=== PATIENT | male | born 1940 | race Caucasian/White ===

== ENCOUNTER 2020-08-03 14:23 | Inpatient (IN) | payer MEDICARE, OTHER ==
[2020-08-03 15:35] LABS: Basophils % (A) 1 %; Eosinophils % (A) 0 %; HGB 12.3 gm/dL (13.0-17.5); Lymphocytes # (A) 0.6 k/uL (1.0-4.8); Lymphocytes % (A) 12 %; MCH 31.4 pg (25.0-35.0); MCV 92.4 fL (80.0-100.0); Mean Platelet Volume 8.1; Monocytes # (A) 0.4 k/uL (0-1.0); Monocytes % (A) 9 %; Neutrophils # (A) 3.8 k/uL (1.3-7.7); Neutrophils % (A) 77 %; Platelet Count 159 k/uL (150-450); RDW 13.6 % (11.5-15.5)
[2020-08-03 15:42] LABS: Potassium 4.4 mmol/L (3.5-5.1)
[2020-08-03 15:46] LABS: Magnesium 1.6 mg/dL (1.6-2.3)
--- NOTE | 2020-08-03 15:46 | XR ---
EXAMINATION TYPE: XR chest 1V portable DATE OF EXAM: 08/03/2020 COMPARISON: NONE HISTORY: Weakness TECHNIQUE: Single view FINDINGS: There is coarse pulmonary interstitial density. Heart is enlarged. Pulmonary vascularity di fficult to evaluate. There is no pleural effusion. There are chest leads. IMPRESSION: Cardiomegaly. Pulmonary interstitial fibrosis. No obvious heart failure.
[2020-08-03 15:47] LABS: Albumin 3.4 g/dL (3.5-5.0); Calcium 8.5 mg/dL (8.4-10.2); Total Bilirubin 1.2 mg/dL (0.2-1.3); Total Protein 6.6 g/dL (6.3-8.2)
[2020-08-03 15:48] LABS: INR 1.1 (<1.2); Partial Thromboplastin Time 24.6 sec (22.0-30.0); Prothrombin Time 11.9 sec (9.0-12.0)
[2020-08-03 15:54] LABS: D-Dimer 1.03 mg/L FEU (<0.60)
--- NOTE | 2020-08-03 16:36 | CT ---
EXAMINATION TYPE: CT chest angio for PE DATE OF EXAM: 08/03/2020 COMPARISON: None HISTORY: Elevated d-dimer, +covid. CT DLP: 699.2 mGycm Automated exposure control for dose reduction was used. CONTRAST: Performed with IV Contrast, patient injected with 80ml mL of Isovue 370. Images were obtained from the thoracic inlet to the diaphragm with IV contrast and 3-D post processin g. FINDINGS: There is extensive coarse reticular and nodular infiltrate throughout the lungs. There is patchy pleu ral thickening in the periphery of the right lung. There is no pleural effusion. There is multiple mediastinal and bronchial lymph nodes that measure up to 1 cm. Thoracic aorta is in tact. There is no sign of aneurysm or dissection. There is normal contrast opacification of the pulmonary arteries. There are no filling defects. There is some arthritic change in the shoulder joints. There is degenerative spurring in the thoracic spine. There is no compression fracture. Sternum is intact. IMPRESSION: No evidence of pulmonary embolism. Extensive pulmonary infiltrates could relate to combined pneumonia and pulmonary fibrosis. Mediastinal and bronchial adenopathy is likely inflammatory.
--- NOTE | 2020-08-03 17:12 | ED ---
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 Reports having onset of symptoms about 6-7 days ago. She reports dyspnea on exertion but denies any chest pain. He was a former smoker. He reports decreased appetite thus leading to decreased oral intake. Denies any loss of taste or smell. Denies possible exposure to unknown Covid patient. States he received the mother now vaccine, first dose 10 days ago. He denies any headaches, blurry vision, one-sided weakness or paresthesias, gait instability. - Related Data Allergies Allergy/AdvReac Type Severity Reaction Status Date / Time Sulfa (Sulfonamide Allergy Unknown Verified 08/03/20 14:34 Antibiotics) Childhood Review of Systems ROS Statement: Those systems with pertinent positive or pertinent negative responses have been documented in the HPI. ROS Other: All systems not noted in ROS Statement are negative. Past Medical History Past Medical History: CVA/TIA, Diabetes Mellitus, Hypertension History of Any Multi-Drug Resistant Organisms: None Reported Past Surgical History: Heart Catheterization Past Psychological History: No Psychological Hx Reported Smoking Status: Former smoker Past Alcohol Use History: None Reported Past Drug Use History: None Reported General Exam Limitations: no limitations General appearance: alert, in no apparent distress Head exam: Present: atraumatic, normocephalic, normal inspection Eye exam: Present: normal appearance, PERRL, EOMI Pupils: Present: normal accommodation ENT exam: Present: normal exam, normal oropharynx, mucous membranes moist Neck exam: Present: normal inspection, full ROM. Absent: tenderness Respiratory exam: Present: normal lung sounds bilaterally. Absent: respiratory distress Cardiovascular Exam: Present: regular rate, normal rhythm, normal heart sounds Extremities exam: Present: normal inspection, full ROM, normal capillary refill. Absent: tenderness, pedal edema, joint swelling Back exam: Present: normal inspection, full ROM. Absent: tenderness Neurological exam: Present: alert, oriented X3 Psychiatric exam: Present: normal affect, normal mood Skin exam: Present: warm, dry, intact, normal color Course Vital Signs 08/03/20 08/03/20 14:24 17:15 Temperature 99.4 F Pulse Rate 65 66 Respiratory 18 18 Rate Blood Pressure 152/70 145/87 O2 Sat by Pulse 97 98 Oximetry Medical Decision Making - Medical Decision Making 80-year-old male with history of diabetes, hypertension presents to emergency Department with a chief complaint of shortness of breath. On physical examination, patient appears to be slightly short of breath. Lungs are clear to auscultation. Patient is not hypoxic at rest. CBC reveals slight anemia at 12.3. VS within normal limits. Elevated d-dimer. CT chest angiogram showed no signs of PE, however there appears to be a bilateral pneumonia secondary to Covid. He did test positive for coronavirus here. Elevated lactic acid of 2.2 as well as elevated BUN of 29, likely secondary to dehydration. Patient will be given IV fluids. Patient will be started on 6 mg of Decadron. azithromycin IV 500 mg. I spoke with Alethea Tate NP who will admit for Dr. Montiel. Case discussed with Pulmonary consult - Lab Data Result diagrams: 08/03/20 15:18 08/03/20 15:08 Lab Results 08/03/20 08/03/20 08/03/20 Range/Units 15:08 15:08 15:08 WBC (3.8-10.6) k/uL RBC (4.30-5.90) m/uL Hgb (13.0-17.5) gm/dL Hct (39.0-53.0) % MCV (80.0-100.0) fL MCH (25.0-35.0) pg MCHC (31.0-37.0) g/dL RDW (11.5-15.5) % Plt Count (150-450) k/uL MPV Neutrophils % % Lymphocytes % % Monocytes % % Eosinophils % % Basophils % % Neutrophils # (1.3-7.7) k/uL Lymphocytes # (1.0-4.8) k/uL Monocytes # (0-1.0) k/uL Eosinophils # (0-0.7) k/uL Basophils # (0-0.2) k/uL PT 11.9 (9.0-12.0) sec INR 1.1 (<1.2) APTT 24.6 (22.0-30.0) sec D-Dimer 1.03 H (<0.60) mg/L FEU Sodium 131 L (137-145) mmol/L Potassium 4.4 (3.5-5.1) mmol/L Chloride 97 L (98-107) mmol/L Carbon Dioxide 24 (22-30) mmol/L Anion Gap 10 mmol/L BUN 29 H (9-20) mg/dL Creatinine 1.25 (0.66-1.25) mg/dL Est GFR (CKD-EPI)AfAm 63 (>60 ml/min/1.73 sqM) Est GFR (CKD-EPI)NonAf 55 (>60 ml/min/1.73 sqM) Glucose 194 H (74-99) mg/dL Lactic Ac Sepsis Rflx Plasma Lactic Acid George 2.2 H* (0.7-2.0) mmol/L Calcium 8.5 (8.4-10.2) mg/dL Magnesium 1.6 (1.6-2.3) mg/dL Total Bilirubin 1.2 (0.2-1.3) mg/dL AST 43 (17-59) U/L ALT 25 (4-49) U/L Alkaline Phosphatase 67 (38-126) U/L Lactate Dehydrogenase 719 H (313-618) U/L C-Reactive Protein 82.0 H (<10.0) mg/L Total Protein 6.6 (6.3-8.2) g/dL Albumin 3.4 L (3.5-5.0) g/dL Coronavirus (PCR) (Not Detectd) 08/03/20 08/03/20 08/03/20 Range/Units 15:18 15:18 15:47 WBC 5.0 (3.8-10.6) k/uL RBC 3.90 L (4.30-5.90) m/uL Hgb 12.3 L (13.0-17.5) gm/dL Hct 36.0 L (39.0-53.0) % MCV 92.4 (80.0-100.0) fL MCH 31.4 (25.0-35.0) pg MCHC 34.0 (31.0-37.0) g/dL RDW 13.6 (11.5-15.5) % Plt Count 159 (150-450) k/uL MPV 8.1 Neutrophils % 77 % Lymphocytes % 12 % Monocytes % 9 % Eosinophils % 0 % Basophils % 1 % Neutrophils # 3.8 (1.3-7.7) k/uL Lymphocytes # 0.6 L (1.0-4.8) k/uL Monocytes # 0.4 (0-1.0) k/uL Eosinophils # 0.0 (0-0.7) k/uL Basophils # 0.0 (0-0.2) k/uL PT (9.0-12.0) sec INR (<1.2) APTT (22.0-30.0) sec D-Dimer (<0.60) mg/L FEU Sodium (137-145) mmol/L Potassium (3.5-5.1) mmol/L Chloride (98-107) mmol/L Carbon Dioxide (22-30) mmol/L Anion Gap mmol/L BUN (9-20) mg/dL Creatinine (0.66-1.25) mg/dL Est GFR (CKD-EPI)AfAm (>60 ml/min/1.73 sqM) Est GFR (CKD-EPI)NonAf (>60 ml/min/1.73 sqM) Glucose (74-99) mg/dL Lactic Ac Sepsis Rflx Y Plasma Lactic Acid George (0.7-2.0) mmol/L Calcium (8.4-10.2) mg/dL Magnesium (1.6-2.3) mg/dL Total Bilirubin (0.2-1.3) mg/dL AST (17-59) U/L ALT (4-49) U/L Alkaline Phosphatase (38-126) U/L Lactate Dehydrogenase (313-618) U/L C-Reactive Protein (<10.0) mg/L Total Protein (6.3-8.2) g/dL Albumin (3.5-5.0) g/dL Coronavirus (PCR) Detected A (Not Detectd) Disposition Clinical Impression: Pneumonia due to COVID-19 virus, Weakness Disposition: ADMITTED IP TO THIS HOSP Condition: Fair Is patient prescribed a controlled substance at d/c from ED?: No Referrals: Ramesh Jansen MD [Primary Care Provider] - 1-2 days Time of Disposition: 18:05
[2020-08-03] MEDS ORDERED: HYDROmorphone 0.5 MG/0.5 ML SYRINGE IVP PRN (17:38)
[2020-08-03] MEDS ORDERED: ONDANSETRON 4 MG/2 ML VIAL IVP PRN (17:38)
[2020-08-03] MEDS ORDERED: NALOXONE 0.4 MG/ML 1 ML VIAL IV PRN (17:38)
[2020-08-03] MEDS ORDERED: traMADol 50 MG TAB PO PRN (17:38)
[2020-08-03] MEDS ORDERED: LORazepam 2 MG/ML INJ IV PRN (17:38)
[2020-08-03] MEDS ORDERED: HYDROcodone/APAP 5-325MG 1 EACH TAB PO PRN (17:38)
[2020-08-03] MEDS ORDERED: dexAMETHasone 2 MG TAB PO STA (17:42)
[2020-08-03] MEDS: SODIUM CHLORIDE 0.9% 1,000 ML IV SCH (17:49)
[2020-08-03] MEDS ORDERED: AZITHROMYCIN 500 MG in SODIUM CHLORIDE 0.9% 250 ML IVPB STA (17:53)
[2020-08-03] MEDS: ACETAMINOPHEN TAB 325 MG TAB PO PRN (22:49)
[2020-08-04 00:09] LABS: Ferritin 217.6 ng/mL (22.0-322.0)
--- NOTE | 2020-08-04 10:43 | P.HPIM ---
History of Present Illness 80-year-old male came in with compensative generalized body aches and mild shortness of breath when he exerts himself a lot. Patient was having some generalized weakness and body aches has been going on for about a month. Patient did receive Covid vaccine 19 days ago. Patient was a former smoker. Patient was tested for Covid 19 and came back positive. Patient EKG shows sinus rhythm on admission but denies aspiration patient appears to be in atrial flutter may be atrial fibrillation as well. Patient is on beta anirudh not on any anticoagulation patient doesn't appear to have previous history of atrial fibrillation. Patient is presently not requiring oxygen CT of the chest was done which is showing pulmonary fibrosis it appears like patient had Covid even before he received vaccine, unsure if Covid is the reason why he has pulmonary fibrosis. Patient's creatinine is 2.5 baseline is not available. Patient was also having 2 second sinus pauses Review of Systems REVIEW OF SYSTEMS: CONSTITUTIONAL: No fever. HEENT: No recent visual problems or hearing problems. Denied any sore throat. CARDIOVASCULAR: No chest pain, orthopnea, PND, no palpitations, no syncope. PULMONARY: No shortness of breath, no cough, no hemoptysis. GASTROINTESTINAL: No diarrhea, no nausea, no vomiting, no abdominal pain. NEUROLOGICAL: No headaches, no weakness, no numbness. HEMATOLOGICAL: Denies any bleeding or petechiae. GENITOURINARY: Denies any burning micturition, frequency, or urgency. MUSCULOSKELETAL/RHEUMATOLOGICAL: Denies any joint pain, swelling, or any muscle pain. ENDOCRINE: Denies any polyuria or polydipsia. The rest of the 14-point review of systems is negative. Past Medical History Past Medical History: CVA/TIA, Diabetes Mellitus, Hypertension History of Any Multi-Drug Resistant Organisms: None Reported Past Surgical History: Heart Catheterization Past Psychological History: No Psychological Hx Reported Smoking Status: Former smoker Past Alcohol Use History: None Reported Past Drug Use History: None Reported Medications and Allergies Home Medications Medication Instructions Recorded Confirmed Type Aspirin 325 mg PO DAILY 08/03/20 08/03/20 History Atorvastatin Calcium [Lipitor] 20 mg PO DAILY 08/03/20 08/03/20 History Clopidogrel Bisulfate [Plavix] 75 mg PO DAILY 08/03/20 08/03/20 History Fluticasone/Vilanterol [Breo 1 puff INHALATION RT-DAILY 08/03/20 08/03/20 History Ellipta 100-25 Mcg Inhaler] glyBURIDE [Diabeta] 5 mg PO BID 08/03/20 08/03/20 History lisinopriL [Zestril] 2.5 mg PO DAILY 08/03/20 08/03/20 History metFORMIN HCL [Glucophage] 500 mg PO BID 08/03/20 08/03/20 History Ascorbic Acid [Vitamin C] 500 mg PO BID #30 tablet 08/04/20 Rx Zinc Sulfate [Orazinc] 220 mg PO DAILY #30 capsule 08/04/20 Rx Allergies Allergy/AdvReac Type Severity Reaction Status Date / Time Sulfa (Sulfonamide Allergy Unknown Verified 08/03/20 19:36 Antibiotics) Childhood Physical Exam Vitals: Vital Signs Temp Pulse Pulse Resp BP BP Pulse Ox 08/04/20 10:00 97.5 F L 53 L 16 164/98 97 08/04/20 07:47 96 08/04/20 05:58 97.6 F 43 L 17 142/76 99 08/04/20 02:32 97.7 F 51 L 16 132/70 97 08/03/20 23:31 98.2 F 60 19 154/70 97 08/03/20 22:50 100.9 F H 64 18 144/68 97 08/03/20 20:00 59 L 18 133/75 98 08/03/20 17:15 66 18 145/87 98 08/03/20 14:24 99.4 F 65 18 152/70 97 Intake and Output 08/03/20 08/04/20 08/04/20 22:59 06:59 14:59 Output Total 400 Balance -400 Output: Urine 400 Other: Voiding Method Urinal Weight 102.058 kg PHYSICAL EXAMINATION: GENERAL: The patient is alert and oriented x3, not in any acute distress. Well developed, well nourished. HEENT: Pupils are round and equally reacting to light. EOMI. No scleral icterus. No conjunctival pallor. Normocephalic, atraumatic. No pharyngeal erythema. No thyromegaly. CARDIOVASCULAR: S1 and S2 present. No murmurs, rubs, or gallops. PULMONARY: Chest is clear to auscultation, no wheezing or crackles. ABDOMEN: Soft, nontender, nondistended, normoactive bowel sounds. No palpable organomegaly. MUSCULOSKELETAL: No joint swelling or deformity. EXTREMITIES: No cyanosis, clubbing, or pedal edema. NEUROLOGICAL: Gross neurological examination did not reveal any focal deficits. SKIN: No rashes. Results CBC & Chem 7: 08/03/20 15:18 08/03/20 15:08 Labs: Abnormal Lab Results - Last 24 Hours (Table) 08/03/20 08/03/20 08/03/20 Range/Units 15:08 15:08 15:08 RBC (4.30-5.90) m/uL Hgb (13.0-17.5) gm/dL Hct (39.0-53.0) % Lymphocytes # (1.0-4.8) k/uL D-Dimer 1.03 H (<0.60) mg/L FEU Sodium 131 L (137-145) mmol/L Chloride 97 L (98-107) mmol/L BUN 29 H (9-20) mg/dL Glucose 194 H (74-99) mg/dL Plasma Lactic Acid George 2.2 H* (0.7-2.0) mmol/L Lactate Dehydrogenase 719 H (313-618) U/L C-Reactive Protein 82.0 H (<10.0) mg/L Albumin 3.4 L (3.5-5.0) g/dL Procalcitonin (0.02-0.09) ng/mL Coronavirus (PCR) (Not Detectd) 08/03/20 08/03/20 08/03/20 Range/Units 15:08 15:18 15:18 RBC 3.90 L (4.30-5.90) m/uL Hgb 12.3 L (13.0-17.5) gm/dL Hct 36.0 L (39.0-53.0) % Lymphocytes # 0.6 L (1.0-4.8) k/uL D-Dimer (<0.60) mg/L FEU Sodium (137-145) mmol/L Chloride (98-107) mmol/L BUN (9-20) mg/dL Glucose (74-99) mg/dL Plasma Lactic Acid George (0.7-2.0) mmol/L Lactate Dehydrogenase (313-618) U/L C-Reactive Protein (<10.0) mg/L Albumin (3.5-5.0) g/dL Procalcitonin 0.15 H (0.02-0.09) ng/mL Coronavirus (PCR) Detected A (Not Detectd) Thrombosis Risk Factor Assmnt - Choose All That Apply Each Risk Factor Represents 3 Points: Age 75 years or older Thrombosis Risk Factor Assessment Total Risk Factor Score: 3 Thrombosis Risk Factor Assessment Level: Moderate Risk Assessment and Plan Plan: -Positive Covid 19 test: Unsure whether patient has active code 90 infection I believe patient may have had this infection even before he received vaccine considering the CT findings of pulmonary fibrosis. Patient is not requiring oxygen probably will not require Decadron. If cleared by pulmonology patient will be discharged today. -Hypovolemic hyponatremia patient is receiving IV fluids -renal failure possibly of acute renal failure received IV fluids overnight. I do not have baseline creatinine available. -Elevated d-dimer rule out pulmonary embolism -Pulmonary fibrosis: Etiology of this pulmonary fibrosis can be Covid 19 -Type 2 diabetes mellitus: We will hold off on metformin for today as patient received contrast with CT . Patient will continue on sliding scale and rest of the home regimen. -Hypertension - possible new-onset atrial fibrillation/flutter patient is bradycardic with sinus pauses, and cardiology will evaluate the patient echo cardiac exam will be obtained if patient need to be 90 correlation patient will be started on anticoagulation patient takes both aspirin and Plavix. If patient is on anticoagulation aspirin will be discontinued patient will be continued on Plavix and anticoagulant if needed. Patient denied any coronary artery disease with stents unsure why patient is on dual antiplatelet therapy.
--- NOTE | 2020-08-04 10:44 | P.DS ---
Providers Date of admission: 08/03/20 18:12 Attending physician: Matt Montiel Consults: 08/03/20 17:38 Consult Physician Stat Consulting Provider: Damien Myers Consult Reason/Comments: Covid pneumonia Do you want consulting provider notified?: Yes 08/04/20 03:11 Consult Physician Routine Consulting Provider: Desirae Lo Consult Reason/Comments: dysrhythmia, pauses Do you want consulting provider notified?: Yes, Notify in am Primary care physician: Ramesh Jansen [facility] Course: Refer to my history of presenting illness Patient Condition at Discharge: Fair Plan - Discharge Summary Discharge Rx Participant: No New Discharge Prescriptions: New Zinc Sulfate [Orazinc] 220 mg PO DAILY #30 capsule Ascorbic Acid [Vitamin C] 500 mg PO BID #30 tablet Continue metFORMIN HCL [Glucophage] 500 mg PO BID lisinopriL [Zestril] 2.5 mg PO DAILY glyBURIDE [Diabeta] 5 mg PO BID Clopidogrel Bisulfate [Plavix] 75 mg PO DAILY Fluticasone/Vilanterol [Breo Ellipta 100-25 Mcg Inhaler] 1 puff INHALATION RT-DAILY Atorvastatin Calcium [Lipitor] 20 mg PO DAILY Aspirin 325 mg PO DAILY Discontinued Metoprolol Succinate [Toprol XL] 25 mg PO DAILY Discharge Medication List Aspirin 325 mg PO DAILY 08/03/20 [History] Atorvastatin Calcium [Lipitor] 20 mg PO DAILY 08/03/20 [History] Clopidogrel Bisulfate [Plavix] 75 mg PO DAILY 08/03/20 [History] Fluticasone/Vilanterol [Breo Ellipta 100-25 Mcg Inhaler] 1 puff INHALATION RT- DAILY 08/03/20 [History] glyBURIDE [Diabeta] 5 mg PO BID 08/03/20 [History] lisinopriL [Zestril] 2.5 mg PO DAILY 08/03/20 [History] metFORMIN HCL [Glucophage] 500 mg PO BID 08/03/20 [History] Ascorbic Acid [Vitamin C] 500 mg PO BID #30 tablet 08/04/20 [Rx] Zinc Sulfate [Orazinc] 220 mg PO DAILY #30 capsule 08/04/20 [Rx] Follow up Appointment(s)/Referral(s): Ramesh Jansen MD [Primary Care Provider] - 3 Days Discharge Disposition: HOME SELF-CARE
--- NOTE | 2020-08-04 11:26 | P.CRDCN ---
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 Patient states he has been feeling weakness, fatigue and shortness of breath for approximately the past month. States he lives at home alone and began to feel more fatigued and weak so he came to the hospital. Patient states he did have his first dose of COVID 19 vaccine approximately 10 days ago but has been having symptoms even prior to his injection. Patient does have continued shortness of breath and productive cough but currently sats 98% on room air. Afebrile. VSS. No current complaints of chest pain, chest pressure or palpitations. Patient is atrial fibrillation on telemetry, heart rate bradycardia in the 40s-50's. Pt states he has not follow with cardiology in about 10 years or more. No known history of Atrial fibrillation. Lactic acid 2.2. Positive COVID 19 infection currently. BUN 29 CR 1.25. Elevated d-dimer 1.03, CTA of the chest negative for PE. DX of chest show pulmonary fibrosis. 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 EKG = SR on EKG, but AFIB on telemetry with bradycardia in the 40's-50's. No rate controllers. SIGNIFICANT LABORATORY VALUES: Lactic acid 2.2. Positive coated infection. B1 29 CR 1.25. Elevated d-dimer 1.03 Chest x-ray 08/03/20 = pulmonary fibrosis CT of chest 08/03/20 = negative for PE Most recent echo = none recently, will order. REVIEW OF SYSTEMS: CONSTITUTIONAL: Complains of fever and lethargy. EYES: Denies blurred vision. Denies blurred vision or vision changes. Denies eye pain. EARS, NOSE, MOUTH & THROAT: Denies headache. Denies sore throat. Denies ear pain Denies hemoptysis. CARDIOVASCULAR: Denies chest pain. Complains of shortness of breath and prod uctive cough. Denies orthopnea. Denies PND. Denies palpitations. RESPIRATORY: Complains of productive cough and shortness of breath. GASTROINTESTINAL: Denies abdominal pain or distention. Denies diarrhea. Denies constipation. Denies nausea. Denies vomiting. MUSCULOSKELETAL: Complains of myalgias. INTEGUMENTARY: Denies pruitis. Denies rash. ENDOCRINE: Complains of fatigue. Denies weight change. Denies polydipsia. Denies polyurina Denies heat/cold intolerance. GENITOURINARY: Denies burning, hematuria or urgency with micturation. HEMATOLOGIC: Denies history of anemia. Denies bleeding. NEUROLOGIC: Denies numbness. Denies tingling. Complains of weakness. PSYCHIATRIC: Denies anxiety. Denies depression. NO PHYSICAL EXAM: GENERAL: Well developed, in no acute distress. HEENT: Head is atraumatic, normocephalic. Pupils are equal, round. Extra ocular movements intact. Mucous membranes moist. Neck supple. No JVD. No carotid bruit. No thyromegaly. LUNGS: Clear to auscultation. No wheezes, rales or rhonchi. No chest wall tenderness on palpation or with deep breathing. HEART: Regular rate and rhythm, no rubs or gallops. S1 and S2 heard. No murmur. ABDOMEN: Abdominal exam, WNL. Bowel sounds x4 quads. Soft, non-tender, without masses, organomegaly, or abdominal aorta enlargement. EXTREMITIES/VASCULAR: Extremities have easily palpable radial, femoral, dorsalis pedis and posterior tibial pulses. No cyanosis, calf tenderness. No BLE edema. NEUROLOGIC: Patient is awake, alert and oriented x3. No focal neurologic abnormalities. FINAL IMPRESSION: 1. COVID 19 2. New onset Atrial fibrillation with rate control, will add Eliquis 5 mg twice dialy. 3. Sick sinus syndrome 4. Pulmonary Fibrosis 5. Hypertension PLAN: Will order echocardiogram. START Eliquis 5 mg twice daily for New onset Atrial fibrillation with good rate control. Will order TSH/Free T4. OK for discharge from a Cadiology perspective after echocardiogram. Follow-up visit in office in 4 weeks. Nurse Practitioner note has been reviewed by the Physician. Signing provider agrees with the documented findings, assessment and plan of care. Past Medical History Past Medical History: CVA/TIA, Diabetes Mellitus, Hypertension History of Any Multi-Drug Resistant Organisms: None Reported Past Surgical History: Heart Catheterization Past Psychological History: No Psychological Hx Reported Smoking Status: Former smoker Past Alcohol Use History: None Reported Past Drug Use History: None Reported Medications and Allergies Home Medications Medication Instructions Recorded Confirmed Type Aspirin 325 mg PO DAILY 08/03/20 08/03/20 History Atorvastatin Calcium [Lipitor] 20 mg PO DAILY 08/03/20 08/03/20 History Clopidogrel Bisulfate [Plavix] 75 mg PO DAILY 08/03/20 08/03/20 History Fluticasone/Vilanterol [Breo 1 puff INHALATION RT-DAILY 08/03/20 08/03/20 History Ellipta 100-25 Mcg Inhaler] glyBURIDE [Diabeta] 5 mg PO BID 08/03/20 08/03/20 History lisinopriL [Zestril] 2.5 mg PO DAILY 08/03/20 08/03/20 History metFORMIN HCL [Glucophage] 500 mg PO BID 08/03/20 08/03/20 History Ascorbic Acid [Vitamin C] 500 mg PO BID #30 tablet 08/04/20 Rx Zinc Sulfate [Orazinc] 220 mg PO DAILY #30 capsule 08/04/20 Rx Allergies Allergy/AdvReac Type Severity Reaction Status Date / Time Sulfa (Sulfonamide Allergy Unknown Verified 08/03/20 19:36 Antibiotics) Childhood Physical Exam Vitals: Vital Signs Temp Pulse Pulse Resp BP BP Pulse Ox 08/04/20 07:47 96 08/04/20 05:58 97.6 F 43 L 17 142/76 99 08/04/20 02:32 97.7 F 51 L 16 132/70 97 08/03/20 23:31 98.2 F 60 19 154/70 97 08/03/20 22:50 100.9 F H 64 18 144/68 97 08/03/20 20:00 59 L 18 133/75 98 08/03/20 17:15 66 18 145/87 98 08/03/20 14:24 99.4 F 65 18 152/70 97 Intake and Output 08/03/20 08/04/20 08/04/20 22:59 06:59 14:59 Output Total 400 Balance -400 Output: Urine 400 Other: Voiding Method Urinal Weight 102.058 kg Results 08/03/20 15:18 08/03/20 15:08 Cardiac Enzymes 08/03/20 Range/Units 15:08 AST 43 (17-59) U/L Lactate Dehydrogenase 719 H (313-618) U/L Coagulation 08/03/20 Range/Units 15:08 PT 11.9 (9.0-12.0) sec APTT 24.6 (22.0-30.0) sec CBC 08/03/20 Range/Units 15:18 WBC 5.0 (3.8-10.6) k/uL RBC 3.90 L (4.30-5.90) m/uL Hgb 12.3 L (13.0-17.5) gm/dL Hct 36.0 L (39.0-53.0) % Plt Count 159 (150-450) k/uL Comprehensive Metabolic Panel 08/03/20 Range/Units 15:08 Sodium 131 L (137-145) mmol/L Potassium 4.4 (3.5-5.1) mmol/L Chloride 97 L (98-107) mmol/L Carbon Dioxide 24 (22-30) mmol/L BUN 29 H (9-20) mg/dL Creatinine 1.25 (0.66-1.25) mg/dL Glucose 194 H (74-99) mg/dL Calcium 8.5 (8.4-10.2) mg/dL AST 43 (17-59) U/L ALT 25 (4-49) U/L Alkaline Phosphatase 67 (38-126) U/L Total Protein 6.6 (6.3-8.2) g/dL Albumin 3.4 L (3.5-5.0) g/dL Current Medications Generic Name Dose Route Start Last Admin Trade Name Freq PRN Reason Stop Dose Admin Acetaminophen 650 mg 08/03/20 17:38 08/03/20 22:49 Acetaminophen Tab 325 Mg Tab PO 650 mg Q6HR PRN Administration Mild Pain or Fever > 100.5 Hydrocodone Bitart/Acetaminophen 1 each 08/03/20 17:38 Hydrocodone/Apap 5-325mg 1 Each Tab PO Q4HR PRN Moderate Pain Ascorbic Acid 1,000 mg 08/04/20 10:15 Ascorbic Acid 500 Mg Tab PO DAILY [facility] Atorvastatin Calcium 20 mg 08/05/20 09:00 Atorvastatin 20 Mg Tab PO DAILY [facility] Budesonide/Formoterol Fumarate 2 puff 08/05/20 08:00 Symbicort 80-4.5 Mcg Inhaler INHALATION RT-BID [facility] Cholecalciferol 25 mcg 08/04/20 10:15 Cholecalciferol 25 Mcg (1000 Iu) Tablet PO DAILY [facility] Clopidogrel Bisulfate 75 mg 08/05/20 09:00 Clopidogrel 75 Mg Tab PO DAILY [facility] Glipizide 10 mg 08/04/20 21:00 Glipizide 10 Mg Tab PO BID [facility] Hydromorphone HCl 0.5 mg 08/03/20 17:38 Hydromorphone 0.5 Mg/0.5 Ml Syringe IVP Q3HR PRN Moderate Pain Sodium Chloride 1,000 mls @ 75 mls/hr 08/03/20 17:45 08/03/20 17:49 Saline 0.9% IV Not Given .[id number] [facility] Lisinopril 2.5 mg 08/05/20 09:00 Lisinopril 2.5 Mg Tab PO DAILY [facility] Lorazepam 0.5 mg 08/03/20 17:38 Lorazepam 2 Mg/Ml Inj IV Q6HR PRN Anxiety Naloxone HCl 0.2 mg 08/03/20 17:38 Naloxone 0.4 Mg/Ml 1 Ml Vial IV Q2M PRN Opioid Reversal Ondansetron HCl 4 mg 08/03/20 17:38 Ondansetron 4 Mg/2 Ml Vial IVP Q8HR PRN Nausea And Vomiting Tramadol HCl 50 mg 08/03/20 17:38 Tramadol 50 Mg Tab PO Q6H PRN Moderate Pain Zinc Sulfate 220 mg 08/04/20 10:15 Zinc Sulfate 220 Mg Cap PO DAILY [facility] Intake and Output 08/03/20 08/04/20 08/04/20 22:59 06:59 14:59 Output Total 400 Balance -400 Output: Urine 400 Other: Voiding Method Urinal Weight 102.058 kg 08/03/20 15:18 08/03/20 15:08 EKG Interpretations (text) New onset Atrial fibrillation with rate control
[2020-08-04] MEDS: ZINC SULFATE 220 MG CAP PO SCH (11:56)
[2020-08-04] MEDS: CHOLECALCIFEROL 25 MCG (1000 IU) TABLET PO SCH (11:56)
[2020-08-04] MEDS: ASCORBIC ACID 500 MG TAB PO SCH (11:56)
[2020-08-04] MEDS: SODIUM CHLORIDE 0.9% 1,000 ML IV SCH ×2 (11:57→17:19)
[2020-08-04 13:16] LABS: T4, Free (Free Thyroxine) 1.87 ng/dL (0.78-2.19)
--- NOTE | 2020-08-04 15:19 | P.CNPUL ---
History of Present Illness Consult date: 08/04/20 Requesting physician: Leslie Blackmon Reason for consult: dyspnea, abnormal CXR/CT Chief complaint: Fall, weakness History of present illness: This is a very pleasant 80-year-old gentleman who follows with Dr. Jansen as his primary care provider. He has a history of CVA with continued right-sided weakness, diabetes mellitus, hypertension, former smoker. One week ago he had fallen at home and could hardly get himself up. He has had progressive weakness since that time. He presented here to the emergency room yesterday for the same. He has been having poor appetite. Poor oral intake. He take edema during a vaccine approximately 10 days ago. No known exposure to CoVID however the patient did test positive yesterday. Chest x-ray shows evidence of cardiomegaly. Pulmonary interstitial fibrosis. No overt heart failure. CT angiogram ruled out pulmonary embolism. There is extensive pulmonary infiltrates related to combined pneumonia and pulmonary fibrosis. Mediastinal and bronchial adenopathy most likely inflammatory. White count 5.0. Hemoglobin 12.3. Lymphocytes 0.6. D-dimer 1.03. Sodium 131. Potassium 4.4. Creatinine 1.25. Initial lactic 2.2. Currently 1.7. LDH 719. C-reactive protein 82. Pro-calcitonin 0.15. TSH 0.26. Free T4 1 0.87. ekg monitor reading atrial fibrillation with bradycardia. He is seen today in consultation on the regular medical floor. His currently resting comfortably in bed. Awake and alert in no acute distress. Maintaining O2 saturations in the 90s on room air. No shortness of breath, cough or congestion. No fever, chills or night sweats. Review of Systems REVIEW OF SYSTEMS: CONSTITUTIONAL: Positive for weakness, recent falls. Denies any recent significant weight loss or weight gain. EYES: Denies change in vision. EARS, NOSE, MOUTH, THROAT: Denies headaches, denies sore throat. CARDIOVASCULAR: Denies chest pain, palpitations or syncopal episodes. RESPIRATORY: Denies shortness of breath, cough, congestion or hemoptysis. GASTROINTESTINAL: Poor appetite, denies abdominal pain GENITOURINARY: Denies hematuria, denies infections. MUSKULOSKELETAL: Continue with right-sided weakness from previous CVA INTEGUMENTARY: Denies rash, denies eczema. NEUROLOGICAL: Denies recent memory loss, no recent seizure activity. PSYCHIATRIC: Denies anxiety, denies depression. HEMATOLOGIC/LYMPHATIC: Denies anemia, denies enlarged lymph nodes. Past Medical History Past Medical History: CVA/TIA, Diabetes Mellitus, Hypertension History of Any Multi-Drug Resistant Organisms: None Reported Past Surgical History: Heart Catheterization Past Psychological History: No Psychological Hx Reported Smoking Status: Former smoker Past Alcohol Use History: None Reported Past Drug Use History: None Reported Medications and Allergies Home Medications Medication Instructions Recorded Confirmed Type Aspirin 325 mg PO DAILY 08/03/20 08/03/20 History Atorvastatin Calcium [Lipitor] 20 mg PO DAILY 08/03/20 08/03/20 History Clopidogrel Bisulfate [Plavix] 75 mg PO DAILY 08/03/20 08/03/20 History Fluticasone/Vilanterol [Breo 1 puff INHALATION RT-DAILY 08/03/20 08/03/20 History Ellipta 100-25 Mcg Inhaler] glyBURIDE [Diabeta] 5 mg PO BID 08/03/20 08/03/20 History lisinopriL [Zestril] 2.5 mg PO DAILY 08/03/20 08/03/20 History metFORMIN HCL [Glucophage] 500 mg PO BID 08/03/20 08/03/20 History Ascorbic Acid [Vitamin C] 500 mg PO BID #30 tablet 08/04/20 Rx Zinc Sulfate [Orazinc] 220 mg PO DAILY #30 capsule 08/04/20 Rx Allergies Allergy/AdvReac Type Severity Reaction Status Date / Time Sulfa (Sulfonamide Allergy Unknown Verified 08/03/20 19:36 Antibiotics) Childhood Physical Exam Vitals: Vital Signs Temp Pulse Pulse Resp BP BP Pulse Ox 08/04/20 14:00 98.3 F 69 18 156/80 92 L 08/04/20 10:00 97.5 F L 53 L 16 164/98 97 08/04/20 08:30 16 08/04/20 07:47 96 08/04/20 05:58 97.6 F 43 L 17 142/76 99 08/04/20 02:32 97.7 F 51 L 16 132/70 97 08/03/20 23:31 98.2 F 60 19 154/70 97 08/03/20 22:50 100.9 F H 64 18 144/68 97 08/03/20 20:00 59 L 18 133/75 98 08/03/20 17:15 66 18 145/87 98 Intake and Output 08/04/20 08/04/20 08/04/20 06:59 14:59 22:59 Intake Total 200 Output Total 400 200 Balance -400 0 Intake: Oral 200 Output: Urine 400 200 Other: Voiding Method Urinal Urinal GENERAL EXAM: Alert, pleasant 80-year-old gentleman, on room air, comfortable in no apparent distress. HEAD: Normocephalic. EYES: Normal reaction of pupils, equal size. NOSE: Clear with pink turbinates. THROAT: No erythema or exudates. NECK: No masses, no JVD. CHEST: No chest wall deformity. LUNGS: Equal air entry with coarse crackles in the bilateral posterior bases. CVS: S1 and S2 normal with no audible murmur, irregular rhythm. ABDOMEN: No hepatosplenomegaly, normal bowel sounds, no guarding or rigidity. SPINE: No scoliosis or deformity SKIN: No rashes CENTRAL NERVOUS SYSTEM: No focal deficits, tone is normal in all 4 extremities. EXTREMITIES: There is no peripheral edema. No clubbing, no cyanosis. Peripheral pulses are intact. Results - Laboratory Findings CBC and BMP: 08/03/20 15:18 08/03/20 15:08 PT/INR, D-dimer PT 11.9 sec (9.0-12.0) 08/03/20 15:08 INR 1.1 (<1.2) 08/03/20 15:08 D-Dimer 1.03 mg/L FEU (<0.60) H 08/03/20 15:08 Abnormal lab findings: Abnormal Labs 08/03/20 08/03/20 08/03/20 15:08 15:08 15:08 RBC Hgb Hct Lymphocytes # D-Dimer 1.03 H Sodium 131 L Chloride 97 L BUN 29 H Glucose 194 H Plasma Lactic Acid George 2.2 H* Lactate Dehydrogenase 719 H C-Reactive Protein 82.0 H Albumin 3.4 L Procalcitonin TSH Coronavirus (PCR) 08/03/20 08/03/20 08/03/20 15:08 15:18 15:18 RBC 3.90 L Hgb 12.3 L Hct 36.0 L Lymphocytes # 0.6 L D-Dimer Sodium Chloride BUN Glucose Plasma Lactic Acid George Lactate Dehydrogenase C-Reactive Protein Albumin Procalcitonin 0.15 H TSH Coronavirus (PCR) Detected A 08/04/20 11:23 RBC Hgb Hct Lymphocytes # D-Dimer Sodium Chloride BUN Glucose Plasma Lactic Acid George Lactate Dehydrogenase C-Reactive Protein Albumin Procalcitonin TSH 0.296 L Coronavirus (PCR) - Diagnostic Findings Chest x-ray: image reviewed CT scan - chest: image reviewed Assessment and Plan Assessment: 1 Generalized weakness with frequent falls 2 Acute CoVID 19 infection 3 New-onset atrial fibrillation with bradycardia 4 History of diabetes mellitus 5 Hypertension 6 Former smoker Plan: The patient was seen and evaluated by Dr. Myers Currently stable from the pulmonary standpoint Recommend vitamin supplements Does not qualify for other CoVID 19 treatments Maintaining O2 saturations in the 90s on room air Anticoagulated on Eliquis per cardiology Home once cleared medically May need subacute rehabilitation We will continue to follow I, the cosigning physician, performed a history & physical examination of the patient. Lungs sounds with coarse crackles in the bilateral posterior bases. Maintaining good O2 saturations in the 90s on room air. I discussed the assessment and plan of care with my nurse practitioner, Kely Arboleda. I attest to the above consultation as dictated by her. Time with Patient: Greater than 30
[2020-08-04] MEDS: ACETAMINOPHEN TAB 325 MG TAB PO PRN (17:20)
[2020-08-04] MEDS: APIXABAN 5 MG TAB PO SCH (22:04)
[2020-08-04] MEDS: glipiZIDE 10 MG TAB PO SCH (22:04)
[2020-08-05] MEDS: SYMBICORT 80-4.5 MCG INHALER INHALATION SCH ×2 (07:56→20:27)
[2020-08-05] MEDS: ASCORBIC ACID 500 MG TAB PO SCH (08:37)
[2020-08-05] MEDS: PANTOPRAZOLE 40 MG/10 ML VIAL IVP SCH ×2 (08:37→08:38)
[2020-08-05] MEDS: glipiZIDE 10 MG TAB PO SCH ×2 (08:37→21:48)
[2020-08-05] MEDS: ATORVASTATIN 20 MG TAB PO SCH (08:37)
[2020-08-05] MEDS: APIXABAN 5 MG TAB PO SCH ×2 (08:37→21:48)
[2020-08-05] MEDS: CLOPIDOGREL 75 MG TAB PO SCH (08:37)
[2020-08-05] MEDS: ZINC SULFATE 220 MG CAP PO SCH (08:37)
[2020-08-05] MEDS: CHOLECALCIFEROL 25 MCG (1000 IU) TABLET PO SCH (08:38)
[2020-08-05] MEDS: SODIUM CHLORIDE 0.9% 1,000 ML IV SCH ×2 (08:40→20:45)
--- NOTE | 2020-08-05 10:41 | ECHOF ---
Referral Reason:A.fib MEASUREMENTS -------- HEIGHT: 188.0 cm WEIGHT: 102.1 kg BP: 135/77 RVIDd: 3.5 cm (< 3.3) IVSd: 1.4 cm (0.6 - 1.1) LVIDd: 4.9 cm (3.9 - 5.3) LVPWd: 1.4 cm (0.6 - 1.1) IVSs: 1.7 cm LVIDs: 3.7 cm LVPWs: 1.6 cm LA Diam: 4.1 cm (2.7 - 3.8) LAESV Index (A-L): 56.66 ml/m Ao Diam: 3.7 cm (2.0 - 3.7) AV Cusp: 2.4 cm (1.5 - 2.6) MV EXCURSION: 19.544 mm (> 18.000) MV EF SLOPE: 122 mm/s (70 - 150) EPSS: 1.4 cm RAP: 5.00 mmHg RVSP: 40.13 mmHg FINDINGS -------- Atrial fibrillation. This was a technically adequate study. The left ventricular size is normal. There is mild concentric left ventricular hypertrophy. Overa ll left ventricular systolic function is moderate-severely impaired with, an EF between 30 - 35 %.The re is a global hypokinesia suggestive of nonischemic cardio myopathy. The right ventricle is mildly enlarged. LA is severely dilated >40 ml/m2 The right atrium is normal in size. 3 ml of Lumason was utilized for enhancement of images. Interatrial and interventricular septum intact. There is mild aortic valve sclerosis. The mitral valve leaflets are mildly thickened. Mild mitral annular calcification present. The tricuspid valve appears structurally normal. Trace/mild (physiologic) pulmonic regurgitation. The aortic root size is normal. IVC Not well visulized. There is no pericardial effusion. CONCLUSIONS -------- 1. The left ventricular size is normal. 2. There is mild concentric left ventricular hypertrophy. 3. Overall left ventricular systolic function is moderate-severely impaired with, an EF between 30 - 35 %.Findings consistent with nonischemic cardio myopathy 4. The right ventricle is mildly enlarged. 5. LA is severely dilated >40 ml/m2 6. 3 ml of Lumason was utilized for enhancement of images. 7. There is mild aortic valve sclerosis. 8. The mitral valve leaflets are mildly thickened. 9. Mild mitral annular calcification present. 10. Trace/mild (physiologic) pulmonic regurgitation. 11. There is no pericardial effusion. [employer]IATE: Krystal Dennis RDCS
[2020-08-05 11:22] LABS: Glucose,Whole Blood 105 mg/dL (75-99)
--- NOTE | 2020-08-05 11:39 | P.PN ---
Subjective Progress Note Date: 08/05/20 This is a 80-year-old gentleman who is admitted to the hospital with Coban pneumonia. Cardiology has seen the patient because of atrial fibrillation. Patient's heart rate is controlled. Echocardiogram showed evidence of cardiomyopathy with ejection fraction 30-35%. Appears to be non-ischemic cardiac myopathy. I'm going to try to treat him with a small dose of Coreg and watch carefully for any bradycardia. We'll also add small dose of Aldactone here patient is already on lisinopril. Continue rest of the management. Follow-up with Dr. AIDEE Lo as an outpatient. Objective - Vital Signs Vital signs: Vital Signs Temp 99.2 F 08/05/20 09:41 Pulse 67 08/05/20 09:41 Resp 20 08/05/20 09:41 BP 157/86 08/05/20 09:41 Pulse Ox 93 L 08/05/20 09:41 Intake & Output 08/04/20 08/05/20 08/05/20 18:59 06:59 18:59 Intake Total 450 Output Total 500 500 Balance -50 -500 Intake: Oral 450 Output: Urine 500 500 Other: Voiding Method Urinal Urinal - Exam Patient is not examined to avoid risk of Covid infection. Information is gathered from the chart - Labs CBC & Chem 7: 08/03/20 15:18 08/03/20 15:08 Labs: Abnormal Lab Results - Last 24 Hours (Table) 08/04/20 08/05/20 Range/Units 11:23 11:20 POC Glucose (mg/dL) 105 H (75-99) mg/dL TSH 0.296 L (0.465-4.680) mIU/L Microbiology - Last 24 Hours (Table) 08/03/20 15:18 Blood Culture - Preliminary Blood No Growth after 24 hours 08/03/20 15:18 Blood Culture - Preliminary Blood No Growth after 24 hours Assessment and Plan Plan: #1. Atrial fibrillation with controlled and corresponds #2. Cardiomyopathy, nonischemic. #3. Covid pneumonia. Plan. Continue current medical therapy. Add small dose of Coreg and Aldactone. Continue to follow heart rate and electrolytes. Follow-up with Dr. AIDEE Lo as an outpatient
--- NOTE | 2020-08-05 11:44 | P.PN ---
Subjective Progress Note Date: 08/05/20 This is a very pleasant 80-year-old gentleman who follows with Dr. Jansen as his primary care provider. He has a history of CVA with continued right-sided weakness, diabetes mellitus, hypertension, former smoker. One week ago he had fallen at home and could hardly get himself up. He has had progressive weakness since that time. He presented here to the emergency room yesterday for the same. He has been having poor appetite. Poor oral intake. He take edema during a vaccine approximately 10 days ago. No known exposure to CoVID however the patient did test positive yesterday. Chest x-ray shows evidence of cardiomegaly. Pulmonary interstitial fibrosis. No overt heart failure. CT angiogram ruled out pulmonary embolism. There is extensive pulmonary infiltrates related to combined pneumonia and pulmonary fibrosis. Mediastinal and bronchial adenopathy most likely inflammatory. White count 5.0. Hemoglobin 12.3. Lymphocytes 0.6. D-dimer 1.03. Sodium 131. Potassium 4.4. Creatinine 1.25. Initial lactic 2.2. Currently 1.7. LDH 719. C-reactive protein 82. Pro-calcitonin 0.15. TSH 0.26. Free T4 1 0.87. conveyor monitor reading atrial fibrillation with bradycardia. He is seen today in consultation on the regular medical floor. His currently resting comfortably in bed. Awake and alert in no acute distress. Maintaining O2 saturations in the 90s on room air. No shortness of breath, cough or congestion. No fever, chills or night sweats. 08/05/2020 the patient is being seen for a follow-up. The patient is hospitalized for acute Covid 19 related infection and generalized weakness and frequent falls. The patient also had a new onset atrial fibrillation. The patient is also known to have diabetes and hypertension as comorbid conditions. The patient has previous history of CVA and continues to have some chronic right-sided weakness. The patient is diabetic and has hypertension. The patient had a CT angiogram that showed no evidence of any pulmonary embolism. Nevertheless, the CAT scan showed diffuse bilateral pulmonary infiltrates. The patient is currently onroom air oxygen with a pulse ox 95%. D-dimer was at 1.03, LDH level was 719, CRP was 82, rest of the blood work showed a creatinine of 1.25 with a BUN of 29. Objective - Vital Signs Vital signs: Vital Signs Temp 99.2 F 08/05/20 09:41 Pulse 67 08/05/20 09:41 Resp 20 08/05/20 09:41 BP 157/86 08/05/20 09:41 Pulse Ox 93 L 08/05/20 09:41 Intake & Output 08/04/20 08/05/20 08/05/20 18:59 06:59 18:59 Intake Total 450 Output Total 500 500 Balance -50 -500 Intake: Oral 450 Output: Urine 500 500 Other: Voiding Method Urinal Urinal - Exam GENERAL EXAM: Alert, pleasant 80-year-old gentleman, on room air, comfortable in no apparent distress. HEAD: Normocephalic. EYES: Normal reaction of pupils, equal size. NOSE: Clear with pink turbinates. THROAT: No erythema or exudates. NECK: No masses, no JVD. CHEST: No chest wall deformity. LUNGS: Equal air entry with coarse crackles in the bilateral posterior bases. CVS: S1 and S2 normal with no audible murmur, irregular rhythm. ABDOMEN: No hepatosplenomegaly, normal bowel sounds, no guarding or rigidity. SPINE: No scoliosis or deformity SKIN: No rashes CENTRAL NERVOUS SYSTEM: No focal deficits, tone is normal in all 4 extremities. EXTREMITIES: There is no peripheral edema. No clubbing, no cyanosis. Peripheral pulses are intact. - Labs CBC & Chem 7: 08/03/20 15:18 08/03/20 15:08 Labs: Abnormal Lab Results - Last 24 Hours (Table) 08/04/20 08/05/20 Range/Units 11:23 11:20 POC Glucose (mg/dL) 105 H (75-99) mg/dL TSH 0.296 L (0.465-4.680) mIU/L Microbiology - Last 24 Hours (Table) 08/03/20 15:18 Blood Culture - Preliminary Blood No Growth after 24 hours 08/03/20 15:18 Blood Culture - Preliminary Blood No Growth after 24 hours Assessment and Plan Plan: 1 Generalized weakness with frequent falls 2 Acute CoVID 19 infection, CT of the chest showed no evidence of any pulmonary embolism and there is extensive [place] infiltrates related to pneumonia. There i s some limited mediastinal lymphadenopathy also. Despite this, the patient is also acting above 90% on room air oxygen. 3 New-onset atrial fibrillation with bradycardia, currently on anticoagulation with Eliquis 4 History of diabetes mellitus 5 Hypertension 6 Former smoker Plan: Currently stable from the pulmonary standpoint Recommend vitamin supplements Does not qualify for other CoVID 19 treatments, but initiate Decadron treatment 6mg IV every 24 hours Maintaining O2 saturations in the 90s on room air Anticoagulated on Eliquis per cardiology Repeat chest x-ray in a.m. Lovenox 40 mg subcu for DVT prophylaxis May need subacute rehabilitation We will continue to follow
[2020-08-05] MEDS: INSULIN ASPART (NovoLOG) 100 UNIT/ML VIAL SQ SCH ×3 (11:54→20:44)
[2020-08-05] MEDS: dexAMETHasone 2 MG TAB PO SCH (12:39)
--- NOTE | 2020-08-05 16:21 | CDI ---
New onset, persistent Documentation Clarification Form Date: 08/05/2020 03:52:29 PM From: Jessica Mckinney RN, CCDS Admit Date: 08/03/2020 06:12:00 PM Patient Name: Ld Maki Visit Number: [id number] Discharge Date: ATTENTION: The Clinical Documentation Specialists (CDI) and [facility] Coding Staff appreciate your assistance in clarifying documentation. Please respond to the clarification below the line at the bottom and electronically sign. The CDI & [facility] Coding staff will review the response and follow-up if needed. Please note: Queries are made part of the Legal Health Record. If you have any questions, please contact the author of this message via ITS. Dr. Isacc Lester Atrial Fibrillation is documented in the consult on 08/04 and subsequent progress notes. Please render your opinion on the type of atrial fibrillation if known. History/Risk Factors: Nonischemic Cardiomyopathy, Diabetes Mellitus, Hypertension Clinical Indicators: 80-year old male present to ED on 08/03 with complaints of weakness and body aches. He reports dyspnea on exertion. 08/03 Vital signs: (14:24) 152/70 65 16 99.5 97 % RA 08/05 ECHO: Atrial fibrillation. Overall left ventricular systolic function is moderate-severely impaired with, an EF between 30-45 % EKG/telemetry: Atrial fibrillation on telemetry with bradycardia in the 40s-50. 08/04 Cardiology consult: New onset Atrial fibrillation with rate control. Treatment: Eliquis 5 mg po bid In your professional opinion, can you please clarify the type of Atrial Fibrillation, if known? Chronic/Permanent Paroxysmal Persistent Other, please specify Unable to determine (Last Revision: August 2017) MTDD
[2020-08-05 16:33] LABS: Glucose,Whole Blood 79 mg/dL (75-99)
[2020-08-05 20:39] LABS: Glucose,Whole Blood 110 mg/dL (75-99)
--- NOTE | 2020-08-05 23:05 | P.PN ---
Subjective Progress Note Date: 08/05/20 Principal diagnosis: Covid positivity with a clinical pneumonia and respiratory distress This is a continue present on a 80-year-old white male with known history of CAD and history of Covid positivity to the patient clinically is improving. He is able to finish sentences a properly. No voiding difficulties. No overt rashes but he feels feverish throughout the night Objective - Vital Signs Vital signs: Vital Signs Temp 99.2 F 08/05/20 21:32 Pulse 73 08/05/20 21:32 Resp 18 08/05/20 17:43 BP 133/63 08/05/20 21:32 Pulse Ox 93 L 08/05/20 21:32 Intake & Output 08/05/20 08/05/20 08/06/20 06:59 18:59 06:59 Output Total 500 Balance -500 Output: Urine 500 Other: Voiding Method Urinal # Voids 3 - Constitutional General appearance: Present: cooperative - EENT Eyes: Absent: abnormal pupil - Respiratory Respiratory: bilateral: diminished - Cardiovascular Rhythm: regular Heart sounds: normal: S1, S2 Abnormal Heart Sounds: Absent: S3 Gallop - Gastrointestinal General gastrointestinal: Present: soft. Absent: tenderness - Neurologic Neurologic: Present: CNII-XII intact - Musculoskeletal Musculoskeletal: Present: generalized weakness - Psychiatric Psychiatric: Present: A&O x's 3, appropriate affect - Labs CBC & Chem 7: 08/03/20 15:18 08/03/20 15:08 Labs: Abnormal Lab Results - Last 24 Hours (Table) 08/05/20 08/05/20 Range/Units 11:20 20:36 POC Glucose (mg/dL) 105 H 110 H (75-99) mg/dL Microbiology - Last 24 Hours (Table) 08/03/20 15:18 Blood Culture - Preliminary Blood No Growth after 48 hours 08/03/20 15:18 Blood Culture - Preliminary Blood No Growth after 48 hours Assessment and Plan (1) Pneumonia due to COVID-19 virus Current Visit: Yes Status: Acute Code(s): U07.1 - COVID-19; J12.82 - Pneumonia due to coronavirus disease 2019 SNOMED Code(s): 976127262065824054 (2) Weakness Current Visit: Yes Status: Acute Code(s): R53.1 - WEAKNESS SNOMED Code(s): 52462209 (3) Diabetes Current Visit: Yes Status: Acute Code(s): E11.9 - TYPE 2 DIABETES MELLITUS WITHOUT COMPLICATIONS SNOMED Code(s): 58413886 Plan: We will continue current regimen treatment. Appreciate pulmonology input. We will continue to follow. Place on sliding scale. Placed on appropriate GI and DVT prophylaxis. Check CBC and CMP in a.m. Time with Patient: Greater than 30
[2020-08-06 04:29] LABS: Glucose,Whole Blood 165 mg/dL (75-99)
[2020-08-06] MEDS: ACETAMINOPHEN TAB 325 MG TAB PO PRN (05:54)
[2020-08-06 06:55] LABS: Glucose,Whole Blood 199 mg/dL (75-99)
[2020-08-06] MEDS: PANTOPRAZOLE 40 MG/10 ML VIAL IVP SCH (07:42)
[2020-08-06] MEDS: glipiZIDE 10 MG TAB PO SCH ×2 (07:43→20:24)
[2020-08-06] MEDS: INSULIN ASPART (NovoLOG) 100 UNIT/ML VIAL SQ SCH ×4 (07:43→20:25)
[2020-08-06] MEDS: CLOPIDOGREL 75 MG TAB PO SCH (07:43)
[2020-08-06] MEDS: SPIRONOLACTONE 25 MG TAB PO SCH (07:43)
[2020-08-06] MEDS: CHOLECALCIFEROL 25 MCG (1000 IU) TABLET PO SCH (07:44)
[2020-08-06] MEDS: ASCORBIC ACID 500 MG TAB PO SCH (07:44)
[2020-08-06] MEDS: dexAMETHasone 2 MG TAB PO SCH (07:44)
[2020-08-06] MEDS: ATORVASTATIN 20 MG TAB PO SCH (07:44)
[2020-08-06] MEDS: ZINC SULFATE 220 MG CAP PO SCH (07:44)
[2020-08-06] MEDS: APIXABAN 5 MG TAB PO SCH ×2 (07:44→20:24)
--- NOTE | 2020-08-06 08:17 | XR ---
EXAMINATION TYPE: XR chest 1V portable DATE OF EXAM: 08/06/2020 CLINICAL HISTORY: Difficulty breathing and covid 19 progress study. TECHNIQUE: Single AP portable upright view of the chest is obtained. COMPARISON: Chest x-ray and CTA chest from 3 days earlier FINDINGS: Background cardiomegaly. Background lung volumes with reticulonodular parenchymal changes and patchy multifocal peripheral opa cities. Osseous structures remain intact. Right lateral mid rib old rib fractures noted. IMPRESSION: Low lung volumes and cardiomegaly along with peripheral fibrotic changes and multifocal a reas of bilateral acute peripheral opacities consistent with covid-19 infection. No significant mcmanus e from most recent studies.
--- NOTE | 2020-08-06 08:24 | P.PN ---
Subjective Principal diagnosis: Covid positivity with a clinical pneumonia and respiratory distress This is a continue present on a 80-year-old white male with known history of CAD and history of Covid positivity to the patient clinically is improving. He is able to finish sentences a properly. No voiding difficulties. No overt rashes but he feels feverish throughout the night The patient has quite severe to enter his second floor home. He states he will be living with his sister once discharged. No significant diarrhea Objective - Vital Signs Vital signs: Vital Signs Temp 103.0 F H 08/06/20 05:45 Pulse 90 08/06/20 05:45 Resp 20 08/06/20 04:23 BP 159/71 08/06/20 05:45 Pulse Ox 92 L 08/06/20 05:45 Intake & Output 08/05/20 08/06/20 08/06/20 18:59 06:59 18:59 Output Total 300 Balance -300 Output: Urine 300 Other: Voiding Method Urinal # Voids 3 2 - Constitutional General appearance: Present: no acute distress - EENT Eyes: Absent: abnormal pupil - Neck Neck: Absent: lymphadenopathy - Respiratory Respiratory: bilateral: diminished - Cardiovascular Rhythm: regular Heart sounds: normal: S1, S2 Abnormal Heart Sounds: Absent: S3 Gallop - Gastrointestinal General gastrointestinal: Present: soft. Absent: tenderness - Labs CBC & Chem 7: 08/03/20 15:18 08/03/20 15:08 Labs: Abnormal Lab Results - Last 24 Hours (Table) 08/05/20 08/05/20 08/06/20 Range/Units 11:20 20:36 04:25 D-Dimer (<0.60) mg/L FEU POC Glucose (mg/dL) 105 H 110 H 165 H (75-99) mg/dL 08/06/20 08/06/20 Range/Units 06:16 06:51 D-Dimer 1.38 H (<0.60) mg/L FEU POC Glucose (mg/dL) 199 H (75-99) mg/dL Microbiology - Last 24 Hours (Table) 08/03/20 15:18 Blood Culture - Preliminary Blood No Growth after 48 hours 08/03/20 15:18 Blood Culture - Preliminary Blood No Growth after 48 hours Assessment and Plan (1) Pneumonia due to COVID-19 virus Current Visit: Yes Status: Acute Code(s): U07.1 - COVID-19; J12.82 - Pneumonia due to coronavirus disease 2018 SNOMED Code(s): 960934212814342322 (2) Weakness Current Visit: Yes Status: Acute Code(s): R53.1 - WEAKNESS SNOMED Code(s): 18510578 (3) Diabetes Current Visit: Yes Status: Acute Code(s): E11.9 - TYPE 2 DIABETES MELLITUS WITHOUT COMPLICATIONS SNOMED Code(s): 38247312 Plan: We will continue current regimen treatment. Appreciate pulmonology input. We will continue to follow. Place on sliding scale. Placed on appropriate GI and DVT prophylaxis. Check CBC and CMP in a.m. I am hopeful because he is on room air. But he will need significant assistance with transfer and ambulation. Discharge planning.
[2020-08-06 08:35] LABS: HCT 36.7 % (39.6-50.0); HGB 12.1 g/dL (13.0-17.0); MCH 30.6 pg (27.0-32.0); MCV 92.7 fL (80.0-97.0); Mean Platelet Volume 11.2 fL (9.5-12.2); Platelet Count 194 X 10*3/uL (140-440); RBC 3.96 X 10*6/uL (4.40-5.60); RDW 14.6 % (11.5-14.5); WBC 7.22 X 10*3/uL (4.50-10.00)
[2020-08-06] MEDS: SYMBICORT 80-4.5 MCG INHALER INHALATION SCH ×2 (08:59→20:49)
[2020-08-06 10:26] LABS: African American GFR (CKD) 60.1 (60.0-200.0); Albumin 3.4 g/dL (3.80-4.90); Albumin/Globulin Ratio 1.36 (1.60-3.17); Anion Gap 9.9 mmol/L (4.00-12.00); BUN/Creat Ratio 23.85 Ratio (12.00-20.00); C Reactive Protein 12.3 mg/dL (0.0-0.8); Calcium 8.4 mg/dL (8.7-10.3); Carbon Dioxide 22.1 mmol/L (21.6-31.8); Globulin 2.5 g/dL (1.6-3.3); Non-African American GFR(CKD) 51.9 (60.0-200.0); Potassium 4.4 mmol/L (3.5-5.5); Total Bilirubin 1.2 mg/dL (0.3-1.2); Total Protein 5.9 g/dL (6.2-8.2)
[2020-08-06 11:31] LABS: Glucose,Whole Blood 157 mg/dL (75-99)
--- NOTE | 2020-08-06 11:58 | P.PN ---
Subjective Progress Note Date: 08/06/20 This is a very pleasant 80-year-old gentleman who follows with Dr. Jansen as his primary care provider. He has a history of CVA with continued right-sided weakness, diabetes mellitus, hypertension, former smoker. One week ago he had fallen at home and could hardly get himself up. He has had progressive weakness since that time. He presented here to the emergency room yesterday for the same. He has been having poor appetite. Poor oral intake. He take edema during a vaccine approximately 10 days ago. No known exposure to CoVID however the patient did test positive yesterday. Chest x-ray shows evidence of cardiomegaly. Pulmonary interstitial fibrosis. No overt heart failure. CT angiogram ruled out pulmonary embolism. There is extensive pulmonary infiltrates related to combined pneumonia and pulmonary fibrosis. Mediastinal and bronchial adenopathy most likely inflammatory. White count 5.0. Hemoglobin 12.3. Lymphocytes 0.6. D-dimer 1.03. Sodium 131. Potassium 4.4. Creatinine 1.25. Initial lactic 2.2. Currently 1.7. LDH 719. C-reactive protein 82. Pro-calcitonin 0.15. TSH 0.26. Free T4 1 0.87. patient monitor reading atrial fibrillation with bradycardia. He is seen today in consultation on the regular medical floor. His currently resting comfortably in bed. Awake and alert in no acute distress. Maintaining O2 saturations in the 90s on room air. No shortness of breath, cough or congestion. No fever, chills or night sweats. 08/05/2020 the patient is being seen for a follow-up. The patient is hospitalized for acute Covid 19 related infection and generalized weakness and frequent falls. The patient also had a new onset atrial fibrillation. The patient is also known to have diabetes and hypertension as comorbid conditions. The patient has previous history of CVA and continues to have some chronic right-sided weakness. The patient is diabetic and has hypertension. The patient had a CT angiogram that showed no evidence of any pulmonary embolism. Nevertheless, the CAT scan showed diffuse bilateral pulmonary infiltrates. The patient is currently onroom air oxygen with a pulse ox 95%. D-dimer was at 1.03, LDH level was 719, CRP was 82, rest of the blood work showed a creatinine of 1.25 with a BUN of 29. On 08/06/2020, the patient is being seen for a follow-up. Currently is on room air oxygen and his pulse ox is around 95%. He spike a temperature 103 yesterday evening and currently is afebrile. He was given Tylenol for fever. He is hemodynamically stable. His blood pressure is stable. He was having generalized weakness and frequent falls at home. He is still quite weak at this point in time. He has had a previous CVA and he suffers from and right-sided weakness on his previous CVA. He is also known to have diabetes and hypertension. His inflammatory markers from today are improving and the LDH is down to 392 and the CRP level is down to 12.3. His proBNP level is 12,000. His creatinine today is 1.3 with a BUN of 31. D-dimer is 1.3. He remains on Decadron. Lisinopril was added regarding his blood pressure control. He is also on Coreg low dose of 1.5 twice a day with meals. He is on long-term establish with Eliquis 5 mg by mouth twice a day. Objective - Vital Signs Vital signs: Vital Signs Temp 98.2 F 08/06/20 09:46 Pulse 64 08/06/20 09:46 Resp 22 08/06/20 09:46 BP 129/55 08/06/20 09:46 Pulse Ox 93 L 08/06/20 09:46 Intake & Output 08/05/20 08/06/20 08/06/20 18:59 06:59 18:59 Output Total 300 Balance -300 Output: Urine 300 Other: Voiding Method Urinal # Voids 3 2 - Exam GENERAL EXAM: Alert, pleasant 80-year-old gentleman, on room air, comfortable in no apparent distress. HEAD: Normocephalic. EYES: Normal reaction of pupils, equal size. NOSE: Clear with pink turbinates. THROAT: No erythema or exudates. NECK: No masses, no JVD. CHEST: No chest wall deformity. LUNGS: Equal air entry with coarse crackles in the bilateral posterior bases. CVS: S1 and S2 normal with no audible murmur, irregular rhythm. ABDOMEN: No hepatosplenomegaly, normal bowel sounds, no guarding or rigidity. SPINE: No scoliosis or deformity SKIN: No rashes CENTRAL NERVOUS SYSTEM: No focal deficits, tone is normal in all 4 extremities. EXTREMITIES: There is no peripheral edema. No clubbing, no cyanosis. Peripheral pulses are inta - Labs CBC & Chem 7: 08/06/20 06:16 08/06/20 06:16 Labs: Abnormal Lab Results - Last 24 Hours (Table) 08/05/20 08/06/20 08/06/20 Range/Units 20:36 04:25 06:16 RBC (4.40-5.60) X 10*6/uL Hgb (13.0-17.0) g/dL Hct (39.6-50.0) % RDW (11.5-14.5) % D-Dimer 1.38 H (<0.60) mg/L FEU Sodium (135-145) mmol/L BUN (9.0-27.0) mg/dL Est GFR (CKD-EPI)NonAf (60.0-200.0) BUN/Creatinine Ratio (12.00-20.00) Ratio Glucose (70-110) mg/dL POC Glucose (mg/dL) 110 H 165 H (75-99) mg/dL Calcium (8.7-10.3) mg/dL AST (14-35) U/L Lactate Dehydrogenase (120-246) U/L C-Reactive Protein (0.0-0.8) mg/dL Total Protein (6.2-8.2) g/dL Albumin (3.80-4.90) g/dL Albumin/Globulin Ratio (1.60-3.17) g/dL 08/06/20 08/06/20 08/06/20 Range/Units 06:16 06:16 06:51 RBC 3.96 L (4.40-5.60) X 10*6/uL Hgb 12.1 L (13.0-17.0) g/dL Hct 36.7 L (39.6-50.0) % RDW 14.6 H (11.5-14.5) % D-Dimer (<0.60) mg/L FEU Sodium 134 L (135-145) mmol/L BUN 31.0 H (9.0-27.0) mg/dL Est GFR (CKD-EPI)NonAf 51.9 L (60.0-200.0) BUN/Creatinine Ratio 23.85 H (12.00-20.00) Ratio Glucose 215 H (70-110) mg/dL POC Glucose (mg/dL) 199 H (75-99) mg/dL Calcium 8.4 L (8.7-10.3) mg/dL AST 55 H (14-35) U/L Lactate Dehydrogenase 392 H (120-246) U/L C-Reactive Protein 12.3 H (0.0-0.8) mg/dL Total Protein 5.9 L (6.2-8.2) g/dL Albumin 3.40 L (3.80-4.90) g/dL Albumin/Globulin Ratio 1.36 L (1.60-3.17) g/dL 08/06/20 Range/Units 11:19 RBC (4.40-5.60) X 10*6/uL Hgb (13.0-17.0) g/dL Hct (39.6-50.0) % RDW (11.5-14.5) % D-Dimer (<0.60) mg/L FEU Sodium (135-145) mmol/L BUN (9.0-27.0) mg/dL Est GFR (CKD-EPI)NonAf (60.0-200.0) BUN/Creatinine Ratio (12.00-20.00) Ratio Glucose (70-110) mg/dL POC Glucose (mg/dL) 157 H (75-99) mg/dL Calcium (8.7-10.3) mg/dL AST (14-35) U/L Lactate Dehydrogenase (120-246) U/L C-Reactive Protein (0.0-0.8) mg/dL Total Protein (6.2-8.2) g/dL Albumin (3.80-4.90) g/dL Albumin/Globulin Ratio (1.60-3.17) g/dL Microbiology - Last 24 Hours (Table) 08/03/20 15:18 Blood Culture - Preliminary Blood No Growth after 48 hours 08/03/20 15:18 Blood Culture - Preliminary Blood No Growth after 48 hours Assessment and Plan Plan: 1 Generalized weakness with frequent falls 2 Acute CoVID [address] infection, [address] of the chest showed no evidence of any pulmonary embolism and there is extensive infiltrates related to pneumonia. There is some limited mediastinal lymphadenopathy also. Despite this, the patient is also acting above 93% on room air oxygen. Clinically, the patient is feeling better. His inflammatory markers are also dropping.The chest was done that showed smaller lung volumes along with cardiomegaly and some peripheral multifocal pulmonary infiltrates consistent with underlying Covid 19 related pneumonia. I would say there is no significant change in his x-ray findings compared to the earlier study. 3 New-onset atrial fibrillation with bradycardia, currently on anticoagulation with Eliquis 4 History of diabetes mellitus 5 Hypertension 6 Former smoker Plan: Currently stable from the pulmonary standpoint Recommend vitamin supplements I would suggest completing the course of Decadron treatment 6mg for a total of 10 days Maintaining O2 saturations in the 90s on room air Anticoagulated on Eliquis per cardiology Repeat chest x-ray in a.m. showing stable bilateral pulmonary infiltrates Lovenox 40 mg subcu for DVT prophylaxis May need subacute rehabilitation versus home with his family. He is weak and he would benefit from rehabilitation. We will continue to follow
[2020-08-06 16:41] LABS: Glucose,Whole Blood 286 mg/dL (75-99)
--- NOTE | 2020-08-06 18:11 | P.PN ---
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 Patient states he has been feeling weakness, fatigue and shortness of breath for approximately the past month. States he lives at home alone and began to feel more fatigued and weak so he came to the hospital. Patient states he did have his first dose of COVID 19 vaccine approximately 10 days ago but has been having symptoms even prior to his injection. Patient does have continued shortness of breath and productive cough but currently sats 98% on room air. Afebrile. VSS. No current complaints of chest pain, chest pressure or palpitations. Patient is atrial fibrillation on telemetry, heart rate bradycardia in the 40s-50's. Pt states he has not follow with cardiology in about 10 years or more. No known history of Atrial fibrillation. Lactic acid 2.2. Positive COVID 19 infection currently. BUN 29 CR 1.25. Elevated d-dimer 1.03, CTA of the chest negative for PE. DX of chest show pulmonary fibrosis. EKG showed sinus rhythm, but AFIB on telemetry with bradycardia in the 40's- 50's. No rate controllers. 2D Echo showed evidence of cardiomyopathy with ejection fraction 30-35%. Telemetry reviewed patient with good rate control with intermittent PVCs. Physical Exam: BP 129/65 HR 64, afebrile, maintaing oxygen saturations on rom air GENERAL: Well developed, in no acute distress. HEENT: Head is atraumatic, normocephalic. Pupils are equal, round. Extra ocular movements intact. Mucous membranes moist. Neck supple. No JVD. No carotid bruit. No thyromegaly. LUNGS: Clear to auscultation. No wheezes, rales or rhonchi. No chest wall tenderness on palpation or with deep breathing. HEART: Regular rate and rhythm, no rubs or gallops. S1 and S2 heard. No murmur. ABDOMEN: Abdominal exam, WNL. Bowel sounds x4 quads. Soft, non-tender, without masses, organomegaly, or abdominal aorta enlargement. EXTREMITIES/VASCULAR: Extremities have easily palpable radial, femoral, dorsalis pedis and posterior tibial pulses. No cyanosis, calf tenderness. No BLE edema. NEUROLOGIC: Patient is awake, alert and oriented x3. No focal neurologic abnormalities. Assessment: COVID 19 infection New onset Atrial fibrillation with rate control, will add Eliquis 5 mg twice dialy. [facility] syndrome Pulmonary Fibrosis Hypertension PLAN -Continue coreg 1.5 BID and aldactone 12.5mg daily -Continue lisinopril 10 mg daily -Continue Eliquis 5 mg twice daily for New onset Atrial fibrillation with good rate control. -Patient will follow up with Dr. Lo outpatient. Nurse Practitioner note has been reviewed by the Physician. Signing provider agrees with the documented findings, assessment and plan of care. Objective - Vital Signs Vital signs: Vital Signs Temp 98.3 F 08/06/20 17:12 Pulse 60 08/06/20 17:12 Resp 17 08/06/20 17:12 BP 145/78 08/06/20 17:12 Pulse Ox 94 L 08/06/20 17:12 Intake & Output 08/05/20 08/06/20 08/06/20 18:59 06:59 18:59 Intake Total 250 Output Total 300 500 Balance -300 -250 Intake: Oral 250 Output: Urine 300 500 Other: Voiding Method Urinal # Voids 3 2 - Labs CBC & Chem 7: 08/06/20 06:16 08/06/20 06:16 Labs: Abnormal Lab Results - Last 24 Hours (Table) 08/05/20 08/06/20 08/06/20 Range/Units 20:36 04:25 06:16 RBC (4.40-5.60) X 10*6/uL Hgb (13.0-17.0) g/dL Hct (39.6-50.0) % RDW (11.5-14.5) % D-Dimer 1.38 H (<0.60) mg/L FEU Sodium (135-145) mmol/L BUN (9.0-27.0) mg/dL Est GFR (CKD-EPI)NonAf (60.0-200.0) BUN/Creatinine Ratio (12.00-20.00) Ratio Glucose (70-110) mg/dL POC Glucose (mg/dL) 110 H 165 H (75-99) mg/dL Calcium (8.7-10.3) mg/dL AST (14-35) U/L Lactate Dehydrogenase (120-246) U/L C-Reactive Protein (0.0-0.8) mg/dL Total Protein (6.2-8.2) g/dL Albumin (3.80-4.90) g/dL Albumin/Globulin Ratio (1.60-3.17) g/dL 08/06/20 08/06/20 08/06/20 Range/Units 06:16 06:16 06:51 RBC 3.96 L (4.40-5.60) X 10*6/uL Hgb 12.1 L (13.0-17.0) g/dL Hct 36.7 L (39.6-50.0) % RDW 14.6 H (11.5-14.5) % D-Dimer (<0.60) mg/L FEU Sodium 134 L (135-145) mmol/L BUN 31.0 H (9.0-27.0) mg/dL Est GFR (CKD-EPI)NonAf 51.9 L (60.0-200.0) BUN/Creatinine Ratio 23.85 H (12.00-20.00) Ratio Glucose 215 H (70-110) mg/dL POC Glucose (mg/dL) 199 H (75-99) mg/dL Calcium 8.4 L (8.7-10.3) mg/dL AST 55 H (14-35) U/L Lactate Dehydrogenase 392 H (120-246) U/L C-Reactive Protein 12.3 H (0.0-0.8) mg/dL Total Protein 5.9 L (6.2-8.2) g/dL Albumin 3.40 L (3.80-4.90) g/dL Albumin/Globulin Ratio 1.36 L (1.60-3.17) g/dL 08/06/20 08/06/20 Range/Units 11:19 16:38 RBC (4.40-5.60) X 10*6/uL Hgb (13.0-17.0) g/dL Hct (39.6-50.0) % RDW (11.5-14.5) % D-Dimer (<0.60) mg/L FEU Sodium (135-145) mmol/L BUN (9.0-27.0) mg/dL Est GFR (CKD-EPI)NonAf (60.0-200.0) BUN/Creatinine Ratio (12.00-20.00) Ratio Glucose (70-110) mg/dL POC Glucose (mg/dL) 157 H 286 H (75-99) mg/dL Calcium (8.7-10.3) mg/dL AST (14-35) U/L Lactate Dehydrogenase (120-246) U/L C-Reactive Protein (0.0-0.8) mg/dL Total Protein (6.2-8.2) g/dL Albumin (3.80-4.90) g/dL Albumin/Globulin Ratio (1.60-3.17) g/dL Microbiology - Last 24 Hours (Table) 08/03/20 15:18 Blood Culture - Preliminary Blood No Growth after 72 hours 08/03/20 15:18 Blood Culture - Preliminary Blood No Growth after 72 hours
[2020-08-06 20:18] LABS: Glucose,Whole Blood 273 mg/dL (75-99)
[2020-08-07] MEDS: ACETAMINOPHEN TAB 325 MG TAB PO PRN (03:30)
[2020-08-07] MEDS: SODIUM CHLORIDE 0.9% 1,000 ML IV SCH ×2 (04:43→22:02)
[2020-08-07 07:23] LABS: Glucose,Whole Blood 64 mg/dL (75-99)
[2020-08-07] MEDS: INSULIN ASPART (NovoLOG) 100 UNIT/ML VIAL SQ SCH ×4 (07:25→22:01)
[2020-08-07] MEDS: CHOLECALCIFEROL 25 MCG (1000 IU) TABLET PO SCH (07:42)
[2020-08-07] MEDS: ATORVASTATIN 20 MG TAB PO SCH (07:42)
[2020-08-07] MEDS: ZINC SULFATE 220 MG CAP PO SCH (07:42)
[2020-08-07] MEDS: PANTOPRAZOLE 40 MG TABLET PO SCH (07:42)
[2020-08-07] MEDS: APIXABAN 5 MG TAB PO SCH ×2 (07:43→22:01)
[2020-08-07] MEDS: glipiZIDE 10 MG TAB PO SCH ×2 (07:43→22:01)
[2020-08-07] MEDS: dexAMETHasone 2 MG TAB PO SCH (07:43)
[2020-08-07] MEDS: ASCORBIC ACID 500 MG TAB PO SCH (07:43)
[2020-08-07] MEDS: CLOPIDOGREL 75 MG TAB PO SCH (07:43)
[2020-08-07] MEDS: SPIRONOLACTONE 25 MG TAB PO SCH (07:43)
[2020-08-07] MEDS: lisinopriL 10 MG TAB PO SCH (07:51)
--- NOTE | 2020-08-07 08:10 | P.PN ---
Subjective Principal diagnosis: Covid positivity with a clinical pneumonia and respiratory distress This is a continue present on a 80-year-old white male with known history of CAD and history of Covid positivity to the patient clinically is improving. He is able to finish sentences a properly. No voiding difficulties. No overt rashes but he feels feverish throughout the night The patient has quite severe to enter his second floor home. He states he will be living with his sister once discharged. No significant diarrhea I suspect patient will benefit from rehab. Objective - Vital Signs Vital signs: Vital Signs Temp 98.1 F 08/07/20 06:01 Pulse 59 L 08/07/20 06:01 Resp 20 08/07/20 06:01 BP 107/65 08/07/20 06:01 Pulse Ox 95 08/07/20 06:01 Intake & Output 08/06/20 08/07/20 08/07/20 18:59 06:59 18:59 Intake Total 250 Output Total 500 Balance -250 Intake: Oral 250 Output: Urine 500 Other: Voiding Method Urinal # Voids 4 - Constitutional General appearance: Present: no acute distress - EENT Eyes: Absent: abnormal pupil - Neck Neck: Absent: lymphadenopathy - Respiratory Respiratory: bilateral: diminished - Cardiovascular Rhythm: regular Abnormal Heart Sounds: Absent: S3 Gallop - Gastrointestinal General gastrointestinal: Present: soft. Absent: tenderness - Neurologic Neurologic: Present: CNII-XII intact - Labs CBC & Chem 7: 08/06/20 06:16 08/06/20 06:16 Labs: Abnormal Lab Results - Last 24 Hours (Table) 08/06/20 08/06/20 08/06/20 Range/Units 06:16 06:16 11:19 RBC 3.96 L (4.40-5.60) X 10*6/uL Hgb 12.1 L (13.0-17.0) g/dL Hct 36.7 L (39.6-50.0) % RDW 14.6 H (11.5-14.5) % Sodium 134 L (135-145) mmol/L BUN 31.0 H (9.0-27.0) mg/dL Est GFR (CKD-EPI)NonAf 51.9 L (60.0-200.0) BUN/Creatinine Ratio 23.85 H (12.00-20.00) Ratio Glucose 215 H (70-110) mg/dL POC Glucose (mg/dL) 157 H (75-99) mg/dL Calcium 8.4 L (8.7-10.3) mg/dL AST 55 H (14-35) U/L Lactate Dehydrogenase 392 H (120-246) U/L C-Reactive Protein 12.3 H (0.0-0.8) mg/dL Total Protein 5.9 L (6.2-8.2) g/dL Albumin 3.40 L (3.80-4.90) g/dL Albumin/Globulin Ratio 1.36 L (1.60-3.17) g/dL 08/06/20 08/06/20 08/07/20 Range/Units 16:38 20:17 07:22 RBC (4.40-5.60) X 10*6/uL Hgb (13.0-17.0) g/dL Hct (39.6-50.0) % RDW (11.5-14.5) % Sodium (135-145) mmol/L BUN (9.0-27.0) mg/dL Est GFR (CKD-EPI)NonAf (60.0-200.0) BUN/Creatinine Ratio (12.00-20.00) Ratio Glucose (70-110) mg/dL POC Glucose (mg/dL) 286 H 273 H 64 L (75-99) mg/dL Calcium (8.7-10.3) mg/dL AST (14-35) U/L Lactate Dehydrogenase (120-246) U/L C-Reactive Protein (0.0-0.8) mg/dL Total Protein (6.2-8.2) g/dL Albumin (3.80-4.90) g/dL Albumin/Globulin Ratio (1.60-3.17) g/dL Microbiology - Last 24 Hours (Table) 08/03/20 15:18 Blood Culture - Preliminary Blood No Growth after 72 hours 08/03/20 15:18 Blood Culture - Preliminary Blood No Growth after 72 hours Assessment and Plan (1) Pneumonia due to COVID-19 virus Current Visit: Yes Status: Acute Code(s): U07.1 - COVID-19; J12.82 - Pneumonia due to coronavirus disease 2018 SNOMED Code(s): 221894298277285455 (2) Weakness Current Visit: Yes Status: Acute Code(s): R53.1 - WEAKNESS SNOMED Code(s): 99164612 (3) Diabetes Current Visit: Yes Status: Acute Code(s): E11.9 - TYPE 2 DIABETES MELLITUS WITHOUT COMPLICATIONS SNOMED Code(s): 62214560 Plan: We will continue current regimen treatment. We will continue to follow. Place on sliding scale. Placed on appropriate GI and DVT prophylaxis. I am hopeful because he is on room air. But he will need significant assistance with transfer and ambulation. Discharge planningfor ECF. Continue steroids for a total 10 days.
[2020-08-07] MEDS: SYMBICORT 80-4.5 MCG INHALER INHALATION SCH ×2 (08:28→20:20)
[2020-08-07 10:59] LABS: HGB 12.3 g/dL (13.0-17.0); MCH 30.7 pg (27.0-32.0); MCHC 32.4 g/dL (32.0-37.0); MCV 94.8 fL (80.0-97.0); Platelet Count 232 X 10*3/uL (140-440); RBC 4.01 X 10*6/uL (4.40-5.60); RDW 14.9 % (11.5-14.5); WBC 8.53 X 10*3/uL (4.50-10.00)
[2020-08-07 11:38] LABS: African American GFR (CKD) 46.8 (60.0-200.0); Albumin 3.3 g/dL (3.80-4.90); Albumin/Globulin Ratio 1.27 (1.60-3.17); Anion Gap 11.1 mmol/L (4.00-12.00); BUN/Creat Ratio 27.5 Ratio (12.00-20.00); Calcium 8.7 mg/dL (8.7-10.3); Carbon Dioxide 23.9 mmol/L (21.6-31.8); Globulin 2.6 g/dL (1.6-3.3); Non-African American GFR(CKD) 40.4 (60.0-200.0); Potassium 4.3 mmol/L (3.5-5.5); Total Bilirubin 0.9 mg/dL (0.2-1.2); Total Protein 5.9 g/dL (6.2-8.2)
[2020-08-07 11:40] LABS: Glucose,Whole Blood 143 mg/dL (75-99)
--- NOTE | 2020-08-07 13:29 | P.PN ---
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 Patient states he has been feeling weakness, fatigue and shortness of breath for approximately the past month. States he lives at home alone and began to feel more fatigued and weak so he came to the hospital. Patient states he did have his first dose of COVID 19 vaccine approximately 10 days ago but has been having symptoms even prior to his injection. Patient does have continued shortness of breath and productive cough but currently sats 98% on room air. Afebrile. VSS. No current complaints of chest pain, chest pressure or palpitations. Patient is atrial fibrillation on telemetry, heart rate bradycardia in the 40s-50's. Pt states he has not follow with cardiology in about 10 years or more. No known history of Atrial fibrillation. Lactic acid 2.2. Positive COVID 19 infection currently. BUN 29 CR 1.25. Elevated d-dimer 1.03, CTA of the chest negative for PE. DX of chest show pulmonary fibrosis. EKG showed sinus rhythm, but AFIB on telemetry with bradycardia in the 40's- 50's. No rate controllers. Patient's home cardiac medications include aspirin daily, lisinopril 2.5mg daily, Plavix 75mg daily, Lipitor 20mg daily. Patient denies history of coronary artery disease, unsure why patient is on dual anti- platelet therapy. 2D Echo showed evidence of cardiomyopathy with ejection fraction 30-35%. 08/07/20: Patient is seen and examined at bedside, sitting up in chair. No acute distress. Endorses having some shortness of breath overnight. No complaints at this time. Telemetry reviewed patient in atrial fibrillation, having intermittent PVCs, and continues to have 2-3 second pauses. HR trend 51-60s, HR low 49. Physical Exam: BP 107/65 HR 59, Febrile 102.1F, maintaing oxygen saturations on rom air GENERAL: no acute distress. LUNGS: Clear to auscultation. No wheezes, rales or rhonchi. No chest wall tenderness on palpation or with deep breathing. HEART: Regular rate and rhythm, no rubs or gallops. S1 and S2 heard. No murmur. ABDOMEN: Soft, non-tender EXTREMITIES/VASCULAR: No BLE edema. NEUROLOGIC: Patient is awake, alert and oriented x3. No focal neurologic abnormalities. Assessment: COVID 19 infection New onset Atrial fibrillation with rate control, Eliquis 5 mg twice daily added. Cardiomyopathy- appears to be non-ischemic Sick sinus syndrome Pulmonary Fibrosis Hypertension PLAN -Continue coreg 1.5 BID for now (hold if HR below 55) and aldactone 12.5mg daily -Continue lisinopril 10 mg daily -Continue Eliquis 5 mg twice daily for New onset Atrial fibrillation. -Patient will follow up with Dr. Lo outpatient. Nurse Practitioner note has been reviewed by the Physician. Signing provider agrees with the documented findings, assessment and plan of care. Objective - Vital Signs Vital signs: Vital Signs Temp 98.1 F 08/07/20 06:01 Pulse 59 L 08/07/20 06:01 Resp 20 08/07/20 07:43 BP 107/65 08/07/20 06:01 Pulse Ox 95 08/07/20 06:01 Intake & Output 08/06/20 08/07/20 08/07/20 18:59 06:59 18:59 Intake Total 250 Output Total 500 Balance -250 Intake: Oral 250 Output: Urine 500 Other: Voiding Method Urinal Urinal # Voids 4 - Labs CBC & Chem 7: 08/07/20 06:57 08/07/20 06:57 Labs: Abnormal Lab Results - Last 24 Hours (Table) 08/06/20 08/06/20 08/07/20 Range/Units 16:38 20:17 06:57 RBC 4.01 L (4.40-5.60) X 10*6/uL Hgb 12.3 L (13.0-17.0) g/dL Hct 38.0 L (39.6-50.0) % RDW 14.9 H (11.5-14.5) % POC Glucose (mg/dL) 286 H 273 H (75-99) mg/dL 08/07/20 Range/Units 07:22 RBC (4.40-5.60) X 10*6/uL Hgb (13.0-17.0) g/dL Hct (39.6-50.0) % RDW (11.5-14.5) % POC Glucose (mg/dL) 64 L (75-99) mg/dL Microbiology - Last 24 Hours (Table) 08/03/20 15:18 Blood Culture - Preliminary Blood No Growth after 72 hours 08/03/20 15:18 Blood Culture - Preliminary Blood No Growth after 72 hours
--- NOTE | 2020-08-07 13:42 | P.PN ---
Subjective Progress Note Date: 08/07/20 This is a very pleasant 80-year-old gentleman who follows with Dr. Jansen as his primary care provider. He has a history of CVA with continued right-sided weakness, diabetes mellitus, hypertension, former smoker. One week ago he had fallen at home and could hardly get himself up. He has had progressive weakness since that time. He presented here to the emergency room yesterday for the same. He has been having poor appetite. Poor oral intake. He take edema during a vaccine approximately 10 days ago. No known exposure to CoVID however the patient did test positive yesterday. Chest x-ray shows evidence of cardiomegaly. Pulmonary interstitial fibrosis. No overt heart failure. CT angiogram ruled out pulmonary embolism. There is extensive pulmonary infiltrates related to combined pneumonia and pulmonary fibrosis. Mediastinal and bronchial adenopathy most likely inflammatory. White count 5.0. Hemoglobin 12.3. Lymphocytes 0.6. D-dimer 1.03. Sodium 131. Potassium 4.4. Creatinine 1.25. Initial lactic 2.2. Currently 1.7. LDH 719. C-reactive protein 82. Pro-calcitonin 0.15. TSH 0.26. Free T4 1 0.87. quality assurance monitor final reading atrial fibrillation with bradycardia. He is seen today in consultation on the regular medical floor. His currently resting comfortably in bed. Awake and alert in no acute distress. Maintaining O2 saturations in the 90s on room air. No shortness of breath, cough or congestion. No fever, chills or night sweats. 08/05/2020 the patient is being seen for a follow-up. The patient is hospitalized for acute Covid 19 related infection and generalized weakness and frequent falls. The patient also had a new onset atrial fibrillation. The patient is also known to have diabetes and hypertension as comorbid conditions. The patient has previous history of CVA and continues to have some chronic right-sided weakness. The patient is diabetic and has hypertension. The patient had a CT angiogram that showed no evidence of any pulmonary embolism. Nevertheless, the CAT scan showed diffuse bilateral pulmonary infiltrates. The patient is currently onroom air oxygen with a pulse ox 95%. D-dimer was at 1.03, LDH level was 719, CRP was 82, rest of the blood work showed a creatinine of 1.25 with a BUN of 29. On 08/06/2020, the patient is being seen for a follow-up. Currently is on room air oxygen and his pulse ox is around 95%. He spike a temperature 103 yesterday evening and currently is afebrile. He was given Tylenol for fever. He is hemodynamically stable. His blood pressure is stable. He was having generalized weakness and frequent falls at home. He is still quite weak at this point in time. He has had a previous CVA and he suffers from and right-sided weakness on his previous CVA. He is also known to have diabetes and hypertension. His inflammatory markers from today are improving and the LDH is down to 392 and the CRP level is down to 12.3. His proBNP level is 12,000. His creatinine today is 1.3 with a BUN of 31. D-dimer is 1.3. He remains on Decadron. Lisinopril was added regarding his blood pressure control. He is also on Coreg low dose of 1.5 twice a day with meals. He is on long-term establish with Eliquis 5 mg by mouth twice a day. 08/07/2020 the patient is doing well. Sitting up on a chair. No further temperature spikes. He is currently on room air oxygen. He has a Covid 19 pneumonia from which is recovering. He also has a previous CVA with right-sided weakness. No other issues otherwise for now. His creatinine is at 1.6. Liver function tests are slightly elevated related to Covid 19 infection. Inflammatory markers were not checked from today. The plan is to send this patient home on [facility]. He is on long-term and to coagulation with Eliquis. He also has atrial fibrillation and the rate is controlled for now. He is a high risk for fall and this should be taken into this. Objective - Vital Signs Vital signs: Vital Signs Temp 97.7 F 08/07/20 13:22 Pulse 52 L 08/07/20 13:22 Resp 18 08/07/20 13:22 BP 123/72 08/07/20 13:22 Pulse Ox 93 L 08/07/20 13:22 Intake & Output 08/06/20 08/07/20 08/07/20 18:59 06:59 18:59 Intake Total 250 Output Total 500 Balance -250 Intake: Oral 250 Output: Urine 500 Other: Voiding Method Urinal Urinal # Voids 4 - Exam GENERAL EXAM: Alert, pleasant 80-year-old gentleman, on room air, comfortable in no apparent distress. Currently on room air oxygen HEAD: Normocephalic. EYES: Normal reaction of pupils, equal size. NOSE: Clear with pink turbinates. THROAT: No erythema or exudates. NECK: No masses, no JVD. CHEST: No chest wall deformity. LUNGS: Equal air entry with coarse crackles in the bilateral posterior bases. CVS: S1 and S2 normal with no audible murmur, irregular rhythm. ABDOMEN: No hepatosplenomegaly, normal bowel sounds, no guarding or rigidity. SPINE: No scoliosis or deformity SKIN: No rashes CENTRAL NERVOUS SYSTEM: No focal deficits, tone is normal in all 4 extremities. EXTREMITIES: There is no peripheral edema. No clubbing, no cyanosis. Peripheral pulses are inta - Labs CBC & Chem 7: 08/07/20 06:57 08/07/20 06:57 Labs: Abnormal Lab Results - Last 24 Hours (Table) 08/06/20 08/06/20 08/07/20 Range/Units 16:38 20:17 06:57 RBC 4.01 L (4.40-5.60) X 10*6/uL Hgb 12.3 L (13.0-17.0) g/dL Hct 38.0 L (39.6-50.0) % RDW 14.9 H (11.5-14.5) % BUN (9.0-27.0) mg/dL Creatinine (0.6-1.5) mg/dL Est GFR (CKD-EPI)AfAm (60.0-200.0) Est GFR (CKD-EPI)NonAf (60.0-200.0) BUN/Creatinine Ratio (12.00-20.00) Ratio Glucose (70-110) mg/dL POC Glucose (mg/dL) 286 H 273 H (75-99) mg/dL AST (14-35) U/L ALT (10-49) U/L Total Protein (6.2-8.2) g/dL Albumin (3.80-4.90) g/dL Albumin/Globulin Ratio (1.60-3.17) g/dL 08/07/20 08/07/20 08/07/20 Range/Units 06:57 07:22 11:38 RBC (4.40-5.60) X 10*6/uL Hgb (13.0-17.0) g/dL Hct (39.6-50.0) % RDW (11.5-14.5) % BUN 44.0 H (9.0-27.0) mg/dL Creatinine 1.6 H (0.6-1.5) mg/dL Est GFR (CKD-EPI)AfAm 46.8 L (60.0-200.0) Est GFR (CKD-EPI)NonAf 40.4 L (60.0-200.0) BUN/Creatinine Ratio 27.50 H (12.00-20.00) Ratio Glucose 60 L (70-110) mg/dL POC Glucose (mg/dL) 64 L 143 H (75-99) mg/dL AST 80 H (14-35) U/L ALT 50 H (10-49) U/L Total Protein 5.9 L (6.2-8.2) g/dL Albumin 3.30 L (3.80-4.90) g/dL Albumin/Globulin Ratio 1.27 L (1.60-3.17) g/dL Microbiology - Last 24 Hours (Table) 08/03/20 15:18 Blood Culture - Preliminary Blood No Growth after 72 hours 08/03/20 15:18 Blood Culture - Preliminary Blood No Growth after 72 hours Assessment and Plan Plan: 1 Generalized weakness with frequent falls 2 Acute CoVID 19 infection, [address] of the chest showed no evidence of any pulmonary embolism and there is extensive infiltrates related to pneumonia. There is some limited mediastinal lymphadenopathy also. Despite this, the patient is also acting above 93% on room air oxygen. Clinically, the patient is feeling better. His inflammatory markers are also dropping.The chest was done that showed smaller lung volumes along with cardiomegaly and some peripheral multifocal pulmonary infiltrates consistent with underlying Covid 19 related pneumonia. Patient is weak. The patient will need rehabilitation. For now is completing a course of Decadron. He is also anticoagulated. 3 New-onset atrial fibrillation with bradycardia, currently on anticoagulation with Eliquis 4 History of diabetes mellitus 5 Hypertension 6 Former smoker Plan: Currently stable from the pulmonary standpoint, consider discharging this patient to rehabilitation. Recommend vitamin supplements completing the course of Decadron treatment 6mg for a total of 10 days Maintaining O2 saturations in the 90s on room air Anticoagulated on Eliquis per cardiology May need subacute rehabilitation versus home with his family. He is weak and he would benefit from rehabilitation. We will sign off the case for now.
[2020-08-07 16:32] LABS: Glucose,Whole Blood 241 mg/dL (75-99)
[2020-08-07 18:15] LABS: Glucose,Whole Blood 220 mg/dL (75-99)
[2020-08-07] MEDS ORDERED: LORazepam 2 MG/ML INJ IV PRN (18:35)
--- NOTE | 2020-08-07 18:57 | XR ---
EXAMINATION TYPE: XR chest 1V portable DATE OF EXAM: 08/07/2020 COMPARISON: 08/06/2020 HISTORY: For study shortness of breath. TECHNIQUE: Single frontal view of the chest is obtained. FINDINGS: There is increase of diffuse bilateral patchy airspace opacities, now moderate to marked a nd most pronounced in the mid to lower lungs. No pleural effusion, or pneumothorax seen. The cardiac silhouette size is within normal limits. The osseous structures are intact. IMPRESSION: Worsening airspace disease.
[2020-08-07 20:21] LABS: Glucose,Whole Blood 212 mg/dL (75-99)
[2020-08-08 07:13] LABS: Glucose,Whole Blood 121 mg/dL (75-99)
[2020-08-08] MEDS: dexAMETHasone 2 MG TAB PO SCH (07:34)
[2020-08-08] MEDS: CLOPIDOGREL 75 MG TAB PO SCH (07:34)
[2020-08-08] MEDS: lisinopriL 10 MG TAB PO SCH (07:34)
[2020-08-08] MEDS: ATORVASTATIN 20 MG TAB PO SCH (07:34)
[2020-08-08] MEDS: ASCORBIC ACID 500 MG TAB PO SCH (07:34)
[2020-08-08] MEDS: ZINC SULFATE 220 MG CAP PO SCH (07:35)
[2020-08-08] MEDS: glipiZIDE 10 MG TAB PO SCH ×2 (07:35→21:33)
[2020-08-08] MEDS: APIXABAN 5 MG TAB PO SCH ×2 (07:35→21:33)
[2020-08-08] MEDS: PANTOPRAZOLE 40 MG TABLET PO SCH (07:35)
[2020-08-08] MEDS: CHOLECALCIFEROL 25 MCG (1000 IU) TABLET PO SCH (07:35)
[2020-08-08] MEDS: SPIRONOLACTONE 25 MG TAB PO SCH (07:35)
[2020-08-08] MEDS: INSULIN ASPART (NovoLOG) 100 UNIT/ML VIAL SQ SCH ×4 (07:36→21:34)
[2020-08-08 07:49] LABS: ALT 46 U/L (4-49); AST 77 U/L (17-59); African American GFR (CKD) 65 (>60 ml/min/1.73 sqM); Albumin 2.7 g/dL (3.5-5.0); Albumin/Globulin Ratio 0.8; Alkaline Phosphatase 64 U/L (38-126); Anion Gap 7 mmol/L; Blood Urea Nitrogen 42 mg/dL (9-20); Calcium 8.4 mg/dL (8.4-10.2); Carbon Dioxide 21 mmol/L (22-30); Chloride 103 mmol/L (98-107); Globulin 3.2 g/dL; Glucose 128 mg/dL (74-99); Non-African American GFR(CKD) 56 (>60 ml/min/1.73 sqM); Potassium 4.7 mmol/L (3.5-5.1); Sodium 131 mmol/L (137-145); Total Bilirubin 1.1 mg/dL (0.2-1.3); Total Protein 5.9 g/dL (6.3-8.2)
--- NOTE | 2020-08-08 08:13 | P.PN ---
Subjective Principal diagnosis: Covid positivity with a clinical pneumonia and respiratory distress This is a continue present on a 80-year-old white male with known history of CAD and history of Covid positivity to the patient clinically is improving. He is able to finish sentences a properly. No voiding difficulties. No overt rashes but he feels feverish throughout the night The patient has quite severe to enter his second floor home. He states he will be living with his sister once discharged. No significant diarrhea I suspect patient will benefit from rehab. He had a rough day yesterday with significant hypoxia but seems to be more stable today. He has minimal recollection of yesterday because he felt so terrible. Objective - Vital Signs Vital signs: Vital Signs Temp 98.2 F 08/08/20 05:33 Pulse 63 08/08/20 05:33 Resp 15 08/08/20 05:33 BP 136/74 08/08/20 05:33 Pulse Ox 98 08/08/20 05:33 Intake & Output 08/07/20 08/08/20 08/08/20 18:59 06:59 18:59 Output Total 250 Balance -250 Output: Urine 250 Other: Voiding Method Urinal Urinal - Constitutional General appearance: Present: no acute distress - EENT Eyes: Absent: abnormal pupil - Neck Neck: Absent: lymphadenopathy - Respiratory Respiratory: bilateral: diminished - Cardiovascular Rhythm: regular Heart sounds: normal: S1, S2 Abnormal Heart Sounds: Absent: S3 Gallop - Gastrointestinal General gastrointestinal: Present: soft. Absent: splenomegaly - Labs CBC & Chem 7: 08/07/20 06:57 08/08/20 07:11 Labs: Abnormal Lab Results - Last 24 Hours (Table) 08/07/20 08/07/20 08/07/20 Range/Units 06:57 06:57 11:38 RBC 4.01 L (4.40-5.60) X 10*6/uL Hgb 12.3 L (13.0-17.0) g/dL Hct 38.0 L (39.6-50.0) % RDW 14.9 H (11.5-14.5) % D-Dimer (<0.60) mg/L FEU Sodium (137-145) mmol/L Carbon Dioxide (22-30) mmol/L BUN 44.0 H (9.0-27.0) mg/dL Creatinine 1.6 H (0.6-1.5) mg/dL Est GFR (CKD-EPI)AfAm 46.8 L (60.0-200.0) Est GFR (CKD-EPI)NonAf 40.4 L (60.0-200.0) BUN/Creatinine Ratio 27.50 H (12.00-20.00) Ratio Glucose 60 L (70-110) mg/dL POC Glucose (mg/dL) 143 H (75-99) mg/dL AST 80 H (14-35) U/L ALT 50 H (10-49) U/L Total Protein 5.9 L (6.2-8.2) g/dL Albumin 3.30 L (3.80-4.90) g/dL Albumin/Globulin Ratio 1.27 L (1.60-3.17) g/dL 08/07/20 08/07/20 08/07/20 Range/Units 16:30 18:13 19:07 RBC (4.40-5.60) X 10*6/uL Hgb (13.0-17.0) g/dL Hct (39.6-50.0) % RDW (11.5-14.5) % D-Dimer 1.76 H (<0.60) mg/L FEU Sodium (137-145) mmol/L Carbon Dioxide (22-30) mmol/L BUN (9.0-27.0) mg/dL Creatinine (0.6-1.5) mg/dL Est GFR (CKD-EPI)AfAm (60.0-200.0) Est GFR (CKD-EPI)NonAf (60.0-200.0) BUN/Creatinine Ratio (12.00-20.00) Ratio Glucose (70-110) mg/dL POC Glucose (mg/dL) 241 H 220 H (75-99) mg/dL AST (14-35) U/L ALT (10-49) U/L Total Protein (6.2-8.2) g/dL Albumin (3.80-4.90) g/dL Albumin/Globulin Ratio (1.60-3.17) g/dL 08/07/20 08/08/20 08/08/20 Range/Units 20:20 07:11 07:11 RBC (4.40-5.60) X 10*6/uL Hgb (13.0-17.0) g/dL Hct (39.6-50.0) % RDW (11.5-14.5) % D-Dimer (<0.60) mg/L FEU Sodium 131 L (137-145) mmol/L Carbon Dioxide 21 L (22-30) mmol/L BUN 42 H (9.0-27.0) mg/dL Creatinine (0.6-1.5) mg/dL Est GFR (CKD-EPI)AfAm (60.0-200.0) Est GFR (CKD-EPI)NonAf (60.0-200.0) BUN/Creatinine Ratio (12.00-20.00) Ratio Glucose 128 H (70-110) mg/dL POC Glucose (mg/dL) 212 H 121 H (75-99) mg/dL AST 77 H (14-35) U/L ALT (10-49) U/L Total Protein 5.9 L (6.2-8.2) g/dL Albumin 2.7 L (3.80-4.90) g/dL Albumin/Globulin Ratio (1.60-3.17) g/dL Microbiology - Last 24 Hours (Table) 08/03/20 15:18 Blood Culture - Preliminary Blood No Growth after 96 hours 08/03/20 15:18 Blood Culture - Preliminary Blood No Growth after 96 hours Assessment and Plan (1) Pneumonia due to COVID-19 virus Current Visit: Yes Status: Acute Code(s): U07.1 - COVID-19; J12.82 - Pneumonia due to coronavirus disease 2018 SNOMED Code(s): 706181364950306716 (2) Weakness Current Visit: Yes Status: Acute Code(s): R53.1 - WEAKNESS SNOMED Code(s): 20474737 (3) Diabetes Current Visit: Yes Status: Acute Code(s): E11.9 - TYPE 2 DIABETES MELLITUS WITHOUT COMPLICATIONS SNOMED Code(s): 24813063 Plan: We will continue current regimen treatment. We will continue to follow. Place on sliding scale. Placed on appropriate GI and DVT prophylaxis. I am hopeful because he is on room air. But he will need significant assistance with transfer and ambulation. Discharge planningfor ECF. Continue steroids for a total 10 days. Anticipate discharge in a.m. with ECF.
[2020-08-08] MEDS: SYMBICORT 80-4.5 MCG INHALER INHALATION SCH ×2 (08:14→20:14)
[2020-08-08 12:30] LABS: Glucose,Whole Blood 209 mg/dL (75-99)
--- NOTE | 2020-08-08 13:28 | P.PN ---
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 Patient states he has been feeling weakness, fatigue and shortness of breath for approximately the past month. States he lives at home alone and began to feel more fatigued and weak so he came to the hospital. Patient states he did have his first dose of COVID 19 vaccine approximately 10 days ago but has been having symptoms even prior to his injection. Patient does have continued shortness of breath and productive cough but currently sats 98% on room air. Afebrile. VSS. No current complaints of chest pain, chest pressure or palpitations. Patient is atrial fibrillation on telemetry, heart rate bradycardia in the 40s-50's. Pt states he has not follow with cardiology in about 10 years or more. No known history of Atrial fibrillation. Lactic acid 2.2. Positive COVID 19 infection currently. BUN 29 CR 1.25. Elevated d-dimer 1.03, CTA of the chest negative for PE. DX of chest show pulmonary fibrosis. EKG showed sinus rhythm, but AFIB on telemetry with bradycardia in the 40's- 50's. No rate controllers. Patient's home cardiac medications include aspirin daily, lisinopril 2.5mg daily, Plavix 75mg daily, Lipitor 20mg daily. Patient denies history of coronary artery disease, unsure why patient is on dual anti- platelet therapy. 2D Echo showed evidence of cardiomyopathy with ejection fraction 30-35%. 08/08/20: Patient is seen and examined at bedside, sitting up in chair. No acute distress. No complaints at this time. Yesterday did have shortness of breath and hypoxia, he states he had a rough night Telemetry reviewed from yesterday patient in at ria fibrillation, having intermittent PVCs, no pauses noted overnight or this morning. HR trend 50-low 60s. Physical Exam: BP 126/61 HR 77, afebrile, maintaing oxygen saturations on rom air GENERAL: no acute distress. LUNGS: Clear to auscultation. No wheezes, rales or rhonchi. No chest wall tend erness on palpation or with deep breathing. HEART: Regular rate and rhythm, no rubs or gallops. S1 and S2 heard. No murmur. ABDOMEN: Soft, non-tender EXTREMITIES/VASCULAR: No BLE edema. NEUROLOGIC: Patient is awake, alert and oriented x3. No focal neurologic abnormalities. Assessment: COVID 19 infection New onset Atrial fibrillation with rate control, Eliquis 5 mg twice daily added. Cardiomyopathy- appears to be non-ischemic Sick sinus syndrome Pulmonary Fibrosis Hypertension PLAN -No further changes from cardiology perspective -Continue coreg 1.5 BID for now (hold if HR below 55) and aldactone 12.5mg daily -Continue lisinopril 10 mg daily -Continue Eliquis 5 mg twice daily for New onset Atrial fibrillation. -Patient will follow up with Dr. Lo outpatient. -Patient is being discharged to Rehab possibly tomorrow. Nurse Practitioner note has been reviewed by the Physician. Signing provider agrees with the documented findings, assessment and plan of care. Objective - Vital Signs Vital signs: Vital Signs Temp 98.2 F 08/08/20 05:33 Pulse 63 08/08/20 05:33 Resp 15 08/08/20 05:33 BP 136/74 08/08/20 05:33 Pulse Ox 98 08/08/20 05:33 Intake & Output 08/07/20 08/08/20 08/08/20 18:59 06:59 18:59 Output Total 250 Balance -250 Output: Urine 250 Other: Voiding Method Urinal Urinal Urinal - Labs CBC & Chem 7: 08/07/20 06:57 08/08/20 07:11 Labs: Abnormal Lab Results - Last 24 Hours (Table) 08/07/20 08/07/20 08/07/20 Range/Units 06:57 06:57 11:38 RBC 4.01 L (4.40-5.60) X 10*6/uL Hgb 12.3 L (13.0-17.0) g/dL Hct 38.0 L (39.6-50.0) % RDW 14.9 H (11.5-14.5) % D-Dimer (<0.60) mg/L FEU Sodium (137-145) mmol/L Carbon Dioxide (22-30) mmol/L BUN 44.0 H (9.0-27.0) mg/dL Creatinine 1.6 H (0.6-1.5) mg/dL Est GFR (CKD-EPI)AfAm 46.8 L (60.0-200.0) Est GFR (CKD-EPI)NonAf 40.4 L (60.0-200.0) BUN/Creatinine Ratio 27.50 H (12.00-20.00) Ratio Glucose 60 L (70-110) mg/dL POC Glucose (mg/dL) 143 H (75-99) mg/dL AST 80 H (14-35) U/L ALT 50 H (10-49) U/L Total Protein 5.9 L (6.2-8.2) g/dL Albumin 3.30 L (3.80-4.90) g/dL Albumin/Globulin Ratio 1.27 L (1.60-3.17) g/dL 08/07/20 08/07/20 08/07/20 Range/Units 16:30 18:13 19:07 RBC (4.40-5.60) X 10*6/uL Hgb (13.0-17.0) g/dL Hct (39.6-50.0) % RDW (11.5-14.5) % D-Dimer 1.76 H (<0.60) mg/L FEU Sodium (137-145) mmol/L Carbon Dioxide (22-30) mmol/L BUN (9.0-27.0) mg/dL Creatinine (0.6-1.5) mg/dL Est GFR (CKD-EPI)AfAm (60.0-200.0) Est GFR (CKD-EPI)NonAf (60.0-200.0) BUN/Creatinine Ratio (12.00-20.00) Ratio Glucose (70-110) mg/dL POC Glucose (mg/dL) 241 H 220 H (75-99) mg/dL AST (14-35) U/L ALT (10-49) U/L Total Protein (6.2-8.2) g/dL Albumin (3.80-4.90) g/dL Albumin/Globulin Ratio (1.60-3.17) g/dL 08/07/20 08/08/20 08/08/20 Range/Units 20:20 07:11 07:11 RBC (4.40-5.60) X 10*6/uL Hgb (13.0-17.0) g/dL Hct (39.6-50.0) % RDW (11.5-14.5) % D-Dimer (<0.60) mg/L FEU Sodium 131 L (137-145) mmol/L Carbon Dioxide 21 L (22-30) mmol/L BUN 42 H (9.0-27.0) mg/dL Creatinine (0.6-1.5) mg/dL Est GFR (CKD-EPI)AfAm (60.0-200.0) Est GFR (CKD-EPI)NonAf (60.0-200.0) BUN/Creatinine Ratio (12.00-20.00) Ratio Glucose 128 H (70-110) mg/dL POC Glucose (mg/dL) 212 H 121 H (75-99) mg/dL AST 77 H (14-35) U/L ALT (10-49) U/L Total Protein 5.9 L (6.2-8.2) g/dL Albumin 2.7 L (3.80-4.90) g/dL Albumin/Globulin Ratio (1.60-3.17) g/dL Microbiology - Last 24 Hours (Table) 08/03/20 15:18 Blood Culture - Preliminary Blood No Growth after 96 hours 08/03/20 15:18 Blood Culture - Preliminary Blood No Growth after 96 hours
[2020-08-08 14:41] VITALS: BMI 28.8
[2020-08-08 17:31] LABS: Glucose,Whole Blood 254 mg/dL (75-99)
[2020-08-08 20:29] LABS: Glucose,Whole Blood 347 mg/dL (75-99)
[2020-08-08] MEDS: SODIUM CHLORIDE 0.9% 1,000 ML IV SCH (22:55)
[2020-08-09 07:00] LABS: Glucose,Whole Blood 96 mg/dL (75-99)
[2020-08-09] MEDS: SYMBICORT 80-4.5 MCG INHALER INHALATION SCH (07:37)
[2020-08-09] MEDS: INSULIN ASPART (NovoLOG) 100 UNIT/ML VIAL SQ SCH (07:37)
[2020-08-09] MEDS: lisinopriL 10 MG TAB PO SCH (07:45)
[2020-08-09] MEDS: ASCORBIC ACID 500 MG TAB PO SCH (07:45)
[2020-08-09] MEDS: SPIRONOLACTONE 25 MG TAB PO SCH (07:46)
[2020-08-09] MEDS: CHOLECALCIFEROL 25 MCG (1000 IU) TABLET PO SCH (07:47)
[2020-08-09] MEDS: dexAMETHasone 2 MG TAB PO SCH (07:47)
[2020-08-09] MEDS: glipiZIDE 10 MG TAB PO SCH (07:47)
[2020-08-09] MEDS: ATORVASTATIN 20 MG TAB PO SCH (07:48)
[2020-08-09] MEDS: PANTOPRAZOLE 40 MG TABLET PO SCH (07:48)
[2020-08-09] MEDS: ZINC SULFATE 220 MG CAP PO SCH (07:48)
[2020-08-09] MEDS: CLOPIDOGREL 75 MG TAB PO SCH (07:48)
[2020-08-09] MEDS: APIXABAN 5 MG TAB PO SCH (07:48)
[2020-08-09 08:16] VITALS: BP 123/65; PULSE 90; RESP 17; TEMP 100.1
--- NOTE | 2020-08-09 08:21 | P.DS ---
Providers Date of admission: 08/03/20 18:12 Attending physician: Ramesh Jansen Consults: 08/03/20 17:38 Consult Physician Stat Consulting Provider: Damien Myers Consult Reason/Comments: Covid pneumonia Do you want consulting provider notified?: Yes 08/04/20 03:11 Consult Physician Routine Consulting Provider: Desirae Lo Consult Reason/Comments: dysrhythmia, pauses Do you want consulting provider notified?: Yes, Notify in am Primary care physician: Ramesh Jansen - Discharge Diagnosis(es) (1) Pneumonia due to COVID-19 virus Current Visit: Yes Status: Acute (2) Weakness Current Visit: Yes Status: Acute (3) Diabetes Current Visit: Yes Status: Acute Hospital Course: This discharge summary and a 80-year-old white male with known history of previous CVA and admission for covert pneumonia. The patient was stabilized and is now under 4 L of oxygen upon discharge. The patient is quite weak but I suspect he will benefit from rehab placement for the duration until he goes home to live with his sister because he lives in a second floor flat in [facility]. Patient Condition at Discharge: Fair Plan - Discharge Summary Discharge Rx Participant: No New Discharge Prescriptions: New Zinc Sulfate [Orazinc] 220 mg PO DAILY #30 capsule Ascorbic Acid [Vitamin C] 500 mg PO BID #30 tablet carvediloL [Coreg] 1.563 mg PO BID-W/MEALS dose INSULIN ASPART (NovoLOG) [NovoLOG (formulary)] 0 unit SQ ACHS vial Zinc Sulfate [Orazinc] 220 mg PO DAILY cap Pantoprazole [Protonix] 40 mg PO AC-BRKFST tablet. Ascorbic Acid [Vitamin C] 1,000 mg PO DAILY tab Cholecalciferol [Vitamin D3 (25 Mcg = 1000 Iu)] 25 mcg PO DAILY tablet Spironolactone [Aldactone] 12.5 mg PO DAILY tab Apixaban [Eliquis] 5 mg PO BID tab dexAMETHasone [Hexadrol] 6 mg PO DAILY #5 tab Acetaminophen Tab [Tylenol] 650 mg PO Q6HR PRN tab PRN Reason: Mild Pain Or Fever > 100.5 Continue metFORMIN HCL [Glucophage] 500 mg PO BID lisinopriL [Zestril] 2.5 mg PO DAILY glyBURIDE [Diabeta] 5 mg PO BID Fluticasone/Vilanterol [Breo Ellipta 100-25 Mcg Inhaler] 1 puff INHALATION RT-DAILY Atorvastatin Calcium [Lipitor] 20 mg PO DAILY Aspirin 325 mg PO DAILY Discontinued Clopidogrel Bisulfate [Plavix] 75 mg PO DAILY Metoprolol Succinate [Toprol XL] 25 mg PO DAILY Discharge Medication List Aspirin 325 mg PO DAILY 08/03/20 [History] Atorvastatin Calcium [Lipitor] 20 mg PO DAILY 08/03/20 [History] Fluticasone/Vilanterol [Breo Ellipta 100-25 Mcg Inhaler] 1 puff INHALATION RT- DAILY 08/03/20 [History] glyBURIDE [Diabeta] 5 mg PO BID 08/03/20 [History] lisinopriL [Zestril] 2.5 mg PO DAILY 08/03/20 [History] metFORMIN HCL [Glucophage] 500 mg PO BID 08/03/20 [History] Ascorbic Acid [Vitamin C] 500 mg PO BID #30 tablet 08/04/20 [Rx] Zinc Sulfate [Orazinc] 220 mg PO DAILY #30 capsule 08/04/20 [Rx] Acetaminophen Tab [Tylenol] 650 mg PO Q6HR PRN tab 08/09/20 [Rx] Apixaban [Eliquis] 5 mg PO BID tab 08/09/20 [Rx] Ascorbic Acid [Vitamin C] 1,000 mg PO DAILY tab 08/09/20 [Rx] Cholecalciferol [Vitamin D3 (25 Mcg = 1000 Iu)] 25 mcg PO DAILY tablet 08/09/20 [Rx] INSULIN ASPART (NovoLOG) [NovoLOG (formulary)] 0 unit SQ ACHS vial 08/09/20 [Rx] Pantoprazole [Protonix] 40 mg PO AC-BRKFST tablet. 08/09/20 [Rx] Spironolactone [Aldactone] 12.5 mg PO DAILY tab 08/09/20 [Rx] Zinc Sulfate [Orazinc] 220 mg PO DAILY cap 08/09/20 [Rx] carvediloL [Coreg] 1.563 mg PO BID-W/MEALS dose 08/09/20 [Rx] dexAMETHasone [Hexadrol] 6 mg PO DAILY #5 tab 08/09/20 [Rx] Follow up Appointment(s)/Referral(s): Desirae Lo MD [STAFF PHYSICIAN] - 4 Weeks Ramesh Jansen MD [Primary Care Provider] - 3 Days Discharge Disposition: TRANSFER TO SNF/ECF
== END 2020-08-09 11:04 | DRG 177 ==
LOC: EC 14:23 → 4SSUR 18:12
PROVIDERS: ADMIT Family Medicine; ATTEND Family Medicine
PROC: 5A0935A Assistance with Respiratory Ventilation, Less than 24 Consecutive Hours, High Flow/Velocity Cannula (ICD-10-PCS; principal; 2020-08-07)
DX: U07.1 COVID-19 (principal); J12.82 Pneumonia due to coronavirus disease 2019; I42.8 Other cardiomyopathies; I69.351 Hemiplegia and hemiparesis following cerebral infarction affecting right dominant side; E87.1 Hypo-osmolality and hyponatremia; I48.19 Other persistent atrial fibrillation; I49.5 Sick sinus syndrome; J84.10 Pulmonary fibrosis, unspecified; E11.9 Type 2 diabetes mellitus without complications; I10 Essential (primary) hypertension; E86.0 Dehydration; E86.1 Hypovolemia; R29.6 Repeated falls; R59.9 Enlarged lymph nodes, unspecified; I25.10 Atherosclerotic heart disease of native coronary artery without angina pectoris; Z79.82 Long term (current) use of aspirin; Z79.02 Long term (current) use of antithrombotics/antiplatelets; Z79.84 Long term (current) use of oral hypoglycemic drugs; Z79.51 Long term (current) use of inhaled steroids; Z79.899 Other long term (current) drug therapy; Z87.891 Personal history of nicotine dependence; Z88.2 Allergy status to sulfonamides
CPT/HCPCS: 36415; 71045; 71275; 80053; 82728; 83605; 83615; 83735; 83880; 84145; 84439; 84443; 85025; 85027; 85379; 85610; 85730; 86140; 87040; 87635; 93005; 93306; 94640; 94760; 96365; 99285

== ENCOUNTER 2020-08-11 03:20 | Emergency (ER) | payer MEDICARE ==
[2020-08-11] MEDS ORDERED: SODIUM CHLORIDE 0.9% 500 ML 500 ML IV STA (03:25)
[2020-08-11 03:29] LABS: Glucose,Whole Blood 220 mg/dL (75-99)
--- NOTE | 2020-08-11 03:50 | ED ---
CPR HPI - General Stated Complaint: Cardiac Arrest Time Seen by Provider: 08/11/20 03:25 Source: EMS Limitations: altered mental status - History of Present Illness Initial Comments: 's patient is 80-year-old man brought from the [facility] on the [facility]. Patient reportedly recently diagnosed with coronavirus. Patient reported to have had a witnessed cardiac arrest tonight. EMS was called and started ACLS protocol, including intubation, IV, multiple medications and CPR. As they were arriving here, they discovered in the EMS paperwork that the patient's CODE STATUS had been changed to DO NOT RESUSCITATE. It looks like the CODE STATUS had occurred yesterday. Patient of course not able to give any history. MD Complaint: found unresponsive Onset/Timin -: minute(s) Place: [place] Bystander CPR Performed: Yes Initial Findings in the Field: unresponsive ROSC in the Field: Yes Associated Injuries: No Treatments Prior to Arrival: intubation, chest compressions, epinephrine mgs # (6) - Related Data Home Medications Medication Instructions Recorded Confirmed Aspirin 325 mg PO DAILY 08/03/20 08/03/20 Atorvastatin Calcium [Lipitor] 20 mg PO DAILY 08/03/20 08/03/20 Fluticasone/Vilanterol [Breo 1 puff INHALATION RT-DAILY 08/03/20 08/03/20 Ellipta 100-25 Mcg Inhaler] glyBURIDE [Diabeta] 5 mg PO BID 08/03/20 08/03/20 lisinopriL [Zestril] 2.5 mg PO DAILY 08/03/20 08/03/20 metFORMIN HCL [Glucophage] 500 mg PO BID 08/03/20 08/03/20 Previous Rx's Medication Instructions Recorded Ascorbic Acid [Vitamin C] 500 mg PO BID #30 tablet 08/04/20 Zinc Sulfate [Orazinc] 220 mg PO DAILY #30 capsule 08/04/20 Acetaminophen Tab [Tylenol] 650 mg PO Q6HR PRN tab 08/09/20 Apixaban [Eliquis] 5 mg PO BID tab 08/09/20 Ascorbic Acid [Vitamin C] 1,000 mg PO DAILY tab 08/09/20 Cholecalciferol [Vitamin D3 (25 25 mcg PO DAILY tablet 08/09/20 Mcg = 1000 Iu)] INSULIN ASPART (NovoLOG) [NovoLOG 0 unit SQ ACHS vial 08/09/20 (formulary)] Pantoprazole [Protonix] 40 mg PO AC-BRKFST tablet. 08/09/20 Spironolactone [Aldactone] 12.5 mg PO DAILY tab 08/09/20 Zinc Sulfate [Orazinc] 220 mg PO DAILY cap 08/09/20 carvediloL [Coreg] 1.563 mg PO BID-W/MEALS dose 08/09/20 dexAMETHasone [Hexadrol] 6 mg PO DAILY #5 tab 08/09/20 Allergies Allergy/AdvReac Type Severity Reaction Status Date / Time Sulfa (Sulfonamide Allergy Unknown Verified 08/03/20 19:36 Antibiotics) Childhood Review of Systems ROS Statement: Those systems with pertinent positive or pertinent negative responses have been documented in the HPI. ROS Other: All systems not noted in ROS Statement are negative. Limitations: ROS unobtainable due to patients medical condition Past Medical History Past Medical History: CVA/TIA, Diabetes Mellitus, Hypertension History of Any Multi-Drug Resistant Organisms: None Reported Past Surgical History: Heart Catheterization Past Psychological History: No Psychological Hx Reported Smoking Status: Former smoker Past Alcohol Use History: None Reported Past Drug Use History: None Reported General Exam Limitations: altered mental status General appearance: other (Patient unresponsive) Head exam: Present: atraumatic, normocephalic Pupils: Present: other (Pupils are Approximately 4 mm and unreactive bilaterally) ENT exam: Present: mucous membranes dry, other (Endotracheal tube with bite block present) Neck exam: Present: normal inspection, other (No palpable step-off or deformity) Respiratory exam: Present: rhonchi, other. Absent: accessory muscle use, decreased breath sounds, prolonged expiratory Cardiovascular Exam: Present: normal rhythm, tachycardia, normal heart sounds. Absent: systolic murmur, diastolic murmur, rubs, gallop GI/Abdominal exam: Present: soft. Absent: distended, tenderness, guarding, rebound, mass Extremities exam: Present: normal inspection, normal capillary refill. Absent: pedal edema, calf tenderness Back exam: Present: normal inspection. Absent: vertebral tenderness Neurological exam: Present: other (GCS is 3) Skin exam: Present: warm, dry, intact, cyanosis. Absent: rash Course - Reevaluation(s) Reevaluation #1: 08/11/20 06:24 The patient had been seeing Dr. Jansen, I did inform him of patient's . I discussed the case with the medical biller/coder and case is signed number to [id number]. Body released for disposition to home Medical Decision Making - Medical Decision Making Patient is 80-year-old man who reportedly had cardiopulmonary arrest at the correction. ACLS protocol had been initiated there and patient transported here. On arrival there is detectable pulse and the patient did have some respiratory effort. He did have accompanying DO NOT RESUSCITATE paperwork and the correction was called and they stated that the DO NOT RESUSCITATE paperwork had been signed yesterday but they called EMS because the paperwork had not been countersigned by physician yet. The paperwork looks otherwise mark ropriate and the patient therefore did not have further ACLS protocol performed when he rhythm deteriorated into V. fib and then asystole. Patient pronounced here - Lab Data Lab Results 08/11/20 Range/Units 03:27 POC Glucose (mg/dL) 220 H (75-99) mg/dL POC Glu Traffic Reporter ID Billy Barclay Disposition Clinical Impression: Cardiopulmonary arrest Disposition: Condition: Undetermined Is patient prescribed a controlled substance at d/c from ED?: No Referrals: Ramesh Jansen MD [Primary Care Provider] - 1-2 days
== END 2020-08-11 06:45 | disposition expired ==
LOC: EC 03:20
DX: I46.9 Cardiac arrest, cause unspecified (principal); R00.0 Tachycardia, unspecified; E11.9 Type 2 diabetes mellitus without complications; I10 Essential (primary) hypertension; Z79.84 Long term (current) use of oral hypoglycemic drugs; Z66 Do not resuscitate; Z79.899 Other long term (current) drug therapy; Z88.2 Allergy status to sulfonamides; Z87.891 Personal history of nicotine dependence; Z86.73 Personal history of transient ischemic attack (TIA), and cerebral infarction without residual deficits; Z95.5 Presence of coronary angioplasty implant and graft; Z86.16 Personal history of COVID-19
CPT/HCPCS: 36415; 92950; 99285